=== PATIENT | male | born 1945 | race Caucasian/White ===

== ENCOUNTER 2017-02-13 20:06 | Inpatient (IN) | payer OTHER ==
[2017-02-13] MEDS ORDERED: NS 1,000 ML IV ONE ×3 (20:40→21:42)
--- NOTE | 2017-02-13 20:48 | EDPHY ---
H & P Time Seen by Provider: 02/13/17 20:28 HPI/ROS: CHIEF COMPLAINT: Diarrhea HISTORY OF PRESENT ILLNESS: The patient is a 71-year-old male with a history of coronary artery disease and bypass surgery who presents emergency department with diarrhea. The patient states his symptoms started yesterday. He has mild abdominal cramping but no real pain per report. He states he has had frequent episodes of nonbloody diarrhea. These occur numerous times per hour. Patient also has had increased urinary output. He denies dysuria or hematuria. He has no flank pain. No nausea or vomiting. No chest pain or shortness of breath. Patient is taking Kaopectate REVIEW OF SYSTEMS: My complete review of systems is negative except as mentioned in the HPI. Past Medical/Surgical History: Includes coronary artery disease Past surgical history: Includes CABG Social history: The patient denies smoking. He drinks alcohol regularly Smoking Status: Former smoker Physical Exam: 37.2, 104/81, 138, 20, 99% on room air GENERAL: No acute distress, alert. HEENT: Eyes normal to inspection, normal pharynx, no signs of dehydration. NECK: [No thyromegaly, no lymphadenopathy, supple. RESPIRATORY: Clear to auscultation bilaterally, no rales, rhonchi or wheezing. CVS: Regular rate and rhythm, no rubs, murmurs, or gallops. ABDOMEN: Soft, minimal suprapubic tenderness to palpation with no rebound or guarding, nondistended, no organomegaly. BACK: Normal to inspection, no CVA tenderness. SKIN: Normal color, no rash, warm, dry. No pallor. EXTREMITIES: No pedal edema, no calf tenderness, no Homans sign or cords, no joint swelling. NEURO/PSYCH: Alert and oriented x3, normal mood and affect, normal motor sensory exam. No obvious cranial nerve deficit. Constitutional: Initial Vital Signs Temperature (C) 37.2 C 02/13/17 20:15 Heart Rate 138 H 02/13/17 20:15 Respiratory Rate 20 02/13/17 20:15 Blood Pressure 104/81 H 02/13/17 20:15 O2 Sat (%) 99 02/13/17 20:15 O2 Delivery Mode Room Air Allergies/Adverse Reactions: No Known Allergies Allergy (Unverified 02/13/17 20:19) Home Medications: Medication Instructions Recorded NK [No Known Home Meds] 02/13/17 Medical Decision Making ED Course/Re-evaluation: In the emergency department I discussed etiologies with the patient and his son. I answered all his questions. IV was placed. Patient given normal saline 1 L IV for hydration. He was given Imodium orally. Laboratory studies were obtained. Patient's CBC showed an elevated white count of 12. Patient's chemistry panel was notable for slightly elevated anion gap. Urine was positive for red blood cells. 2130: The patient is having episodes of diarrhea, nausea and vomiting. He was given Zofran 4 mg IV. The patient is slightly anxious. The patient reports that he drinks a pt of alcohol daily. I feel this may be exacerbated by alcohol withdrawal symptoms. The patient was given 1 mg of Ativan IV. He was given librium 25 mg orally. Differential Diagnosis: My differential includes but is not limited to infectious diarrhea, colitis, dehydration, mass, malignancy - Data Points Laboratory Results: Laboratory Results 02/13/17 20:35 02/13/17 20:35 02/13/17 02/13/17 02/13/17 20:44 20:35 20:35 WBC 12.44 10^3/uL H 10^3/uL (3.80-9.50) RBC 5.17 10^6/uL 10^6/uL (4.40-6.38) Hgb 17.3 g/dL g/dL (13.7-17.5) Hct 50.1 % % (40.0-51.0) MCV 96.9 fL fL (81.5-99.8) MCH 33.5 pg pg (27.9-34.1) MCHC 34.5 g/dL g/dL (32.4-36.7) RDW 13.2 % % (11.5-15.2) Plt Count 258 10^3/uL 10^3/uL (150-400) MPV 9.7 fL fL (8.7-11.7) Neut % (Auto) 73.4 % % (39.3-74.2) Lymph % (Auto) 16.2 % % (15.0-45.0) [place] % (Auto) 9.5 % % (4.5-13.0) Eos % (Auto) 0.2 % L % (0.6-7.6) Baso % (Auto) 0.4 % % (0.3-1.7) Nucleat RBC Rel Count 0.0 % % (0.0-0.2) Absolute Neuts (auto) 9.13 10^3/uL H 10^3/uL (1.70-6.50) Absolute Lymphs (auto) 2.02 10^3/uL 10^3/uL (1.00-3.00) Absolute Monos (auto) 1.18 10^3/uL H 10^3/uL (0.30-0.80) Absolute Eos (auto) 0.02 10^3/uL L 10^3/uL (0.03-0.40) Absolute Basos (auto) 0.05 10^3/uL 10^3/uL (0.02-0.10) Absolute Nucleated RBC 0.00 10^3/uL 10^3/uL (0-0.01) Immature Gran % 0.3 % % (0.0-1.1) Immature Gran # 0.04 10^3/uL 10^3/uL (0.00-0.10) Sodium 138 mEq/L mEq/L (134-144) Potassium 3.6 mEq/L mEq/L (3.5-5.2) Chloride 100 mEq/L mEq/L (97-110) Carbon Dioxide 21 mEq/l L mEq/l (22-31) Anion Gap 17 mEq/L H mEq/L (8-16) BUN 4 mg/dL L mg/dL (7-23) Creatinine 0.6 mg/dL L mg/dL (0.7-1.3) Estimated GFR > 60 Glucose 90 mg/dL mg/dL (70-100) Calcium 10.2 mg/dL mg/dL (8.5-10.4) Total Bilirubin 1.2 mg/dL mg/dL (0.1-1.4) Conjugated Bilirubin 0.3 mg/dL mg/dL (0.0-0.5) Unconjugated Bilirubin 0.9 mg/dL mg/dL (0.0-1.1) AST 39 IU/L IU/L (17-59) ALT 44 IU/L IU/L (21-72) Alkaline Phosphatase 126 IU/L IU/L (38-126) Total Protein 7.6 g/dL g/dL (6.3-8.2) Albumin 4.5 g/dL g/dL (3.5-5.0) Lipase 43 IU/L IU/L (23-300) Urine Color YELLOW Urine Appearance CLEAR Urine pH 7.0 (5.0-7.5) Ur Specific [place] 1.009 (1.002-1.030) Urine Protein NEGATIVE (NEGATIVE) Urine Ketones TRACE H (NEGATIVE) Urine Blood NEGATIVE (NEGATIVE) Urine Nitrate NEGATIVE (NEGATIVE) Urine Bilirubin NEGATIVE (NEGATIVE) Urine Urobilinogen NEGATIVE EU EU (0.2-1.0) Ur Leukocyte Esterase NEGATIVE (NEGATIVE) Urine RBC 10-15 /hpf H /hpf (0-3) Urine WBC 1-3 /hpf /hpf (0-3) Ur Epithelial Cells NONE SEEN /lpf /lpf (NONE-1+) Urine Glucose NEGATIVE (NEGATIVE) Medications Given: Discontinued Medications Chlordiazepoxide HCl (Librium) 25 mg PO EDNOW ONE Stop: 02/13/17 21:43 Last Admin: 02/13/17 21:47 Dose: 25 mg Sodium Chloride (Ns) 1,000 mls @ 0 mls/hr IV ONCE ONE PRN Reason: Wide Open Stop: 02/13/17 20:41 Last Admin: 02/13/17 20:41 Dose: 1,000 mls Sodium Chloride (Ns) 1,000 mls @ 0 mls/hr IV EDNOW ONE; Wide Open PRN Reason: Protocol Stop: 02/13/17 20:50 Last Admin: 02/13/17 21:05 Dose: Not Given Sodium Chloride (Ns) 1,000 mls @ 0 mls/hr IV ONCE ONE; Wide Open PRN Reason: Protocol Stop: 02/13/17 21:43 Last Admin: 02/13/17 21:46 Dose: 1,000 mls Loperamide HCl (Imodium) 4 mg PO EDNOW ONE Stop: 02/13/17 20:50 Last Admin: 02/13/17 20:56 Dose: 4 mg Lorazepam (Ativan Injection) 1 mg IVP EDNOW ONE Stop: 02/13/17 21:35 Last Admin: 02/13/17 21:37 Dose: 1 mg Ondansetron HCl (Zofran) 4 mg IVP EDNOW ONE Stop: 02/13/17 21:36 Last Admin: 02/13/17 21:35 Dose: 4 mg Departure - Departure Disposition: [facility] Inpatient Acute Clinical Impression: Diarrhea Qualifiers: Diarrhea type: unspecified type Qualified Code(s): R19.7 - Diarrhea, unspecified Vomiting Qualifiers: Vomiting type: unspecified Vomiting Intractability: unspecified Nausea presence : with nausea Qualified Code(s): R11.2 - Nausea with vomiting, unspecified Alcohol withdrawal Qualifiers: Complication of substance-induced condition: uncomplicated Qualified Code(s): F10.230 - Alcohol dependence with withdrawal, uncomplicated Condition: Good Instructions: Acute Diarrhea (ED) Referrals: NONE *PRIMARY CARE P,. [Primary Care Provider] - As per Instructions
[2017-02-13] MEDS ORDERED: LOPERAMIDE HCL 2 MG CAP PO ONE (20:49)
[2017-02-13 20:56] LABS: PLATELET COUNT 258 10^3/uL (150-400)
[2017-02-13] MEDS ORDERED: ONDANSETRON 4 MG/2 ML VIAL ONE (21:31)
[2017-02-13] MEDS ORDERED: LORazepam 2 MG/ML INJ IVP ONE ×3 (21:34→23:27)
[2017-02-13] MEDS ORDERED: ONDANSETRON 4 MG/2 ML VIAL IVP ONE (21:35)
[2017-02-13] MEDS ORDERED: chlordiazePOXIDE 25 MG CAP PO ONE ×2 (21:42→23:27)
[2017-02-13] MEDS ORDERED: ACETAMINOPHEN 325 MG TAB PO PRN (22:45)
[2017-02-13] MEDS ORDERED: ONDANSETRON 4 MG/2 ML VIAL IVP PRN (22:45)
[2017-02-13] MEDS ORDERED: LORazepam 2 MG/ML INJ IVP PRN ×2 (22:47)
[2017-02-13] MEDS ORDERED: D50W 25 GM/50 ML VIAL IVP PRN (22:50)
[2017-02-13] MEDS ORDERED: POTASSIUM Cl (KCl) 40 MEQ in D5W 1/2 NS 1,000 ML IV SCH (23:00)
[2017-02-13] MEDS ORDERED: THIAMINE HCL 500 MG in NS 100 ML IV ONE (23:30)
--- NOTE | 2017-02-13 23:44 | PDGENHP ---
History and Physical - Chief Complaint diarrhea - History of Present Illness Source-patient is able to provide history appears fairly reliable despite having received 3 mg of Ativan. History is consistent with that given me by the ED provider. EMR was reviewed also. HPI-this is a very pleasant 71-year-old gentleman with past medical history significant for coronary artery disease and alcoholism with a 1 pt per day of vodka intake who presents to the emergency department today with complaints of 1 -2 day history of unrelenting watery diarrhea. Patient reports that he has had a to use the toilet every hour. He denies any witnessed melena or hematochezia. Denies any nausea or vomiting. He also reports increased urinary frequency. Patient denies any fevers or chills. Patient denies any cough shortness of breath no rhinorrhea. No abdominal pain. Patient denies any hematuria but reports that it is very uncomfortable to urinate as he has lower abdominal pain. In the emergency department was noted patient was quite tremulous and tachycardic. The CIWA score initially was found to be 19 in further discussion patient regarding his alcohol consumption was positive for 1 pt of vodka per day. At time of my interview patient reports that he shares half pt with his brother. History Information - Allergies/Home Medication List Allergies/Adverse Reactions: No Known Allergies Allergy (Unverified 02/13/17 20:19) Home Medications: NK [No Known Home Meds] 02/13/17 [Last Taken Unknown] I have personally reviewed and updated: family history, medical history, social history, surgical history - Past Medical History Additional medical history: CAD status post CABG, ETOH heavy use daily 1 pt of vodka per day - Surgical History Reports: coronary bypass surgery - Family History Additional family history: Patient unable to recall - Social History Smoking Status: Former smoker Tobacco Use: Cigarettes Alcohol Use: Heavy (One pt of vodka daily) Drug Use: None Additional social history: Limited history secondary to patient's withdrawal and sedative medications. Patient reports he lives with his brother. Cor status is full Review of Systems Review of Systems: ROS: 10pt was reviewed & negative except for what was stated in HPI & below Physical Exam Physical Exam: 02/13/17 21:39 Heart Rate 120 H Respiratory 18 Rate O2 Sat (%) 93 Temperature (C) 37.2 C Blood Pressure 148/107 H Mean Arterial 120 H Pressure (MAP) O2 Delivery Room Air Mode Temp Pulse Resp BP Pulse Ox 37.2 C 124 H 18 144/114 H 93 02/13/17 21:39 02/13/17 23:06 02/13/17 23:06 02/13/17 23:06 02/13/17 23:06 Selected Entries Constitutional: no apparent distress, chronically ill appearing, unkempt, cachectic, No appears nourished, No uncomfortable Eyes: PERRL, anicteric sclera, EOMI Ears, Nose, Mouth, Throat: no oral mucosal ulcers, poor dentition, dry mucous membranes Cardiovascular: no murmur, rub, or gallop, tachycardia (Regular rhythm), No edema Peripheral Pulses: 1+: dorsalis-pedis (R), dorsalis-pedis (L) Respiratory: no respiratory distress, no rales or rhonchi, clear to auscultation , No respiratory distress Gastrointestinal: normoactive bowel sounds, tenderness (Lower abdomen related to bladder), distension (Due to palpable bladder to the umbilicus), No ascites, No guarding Genitourinary: farah in urethra (Farah catheter was placed after my initial exam of the patient noting that his bladder was enlarged up to his umbilicus patient's heart rate did drop down after Farah placement and removal of 1800 mL of urine), No no bladder fullness Skin: warm, pressure ulcer (Erythema at the coccyx.), other (Patient is slightly flushed.), No rash Musculoskeletal: generalized weakness, No joint tenderness Neurologic: AAOx3, weakness (Nonfocal/generalized), other (Nonfocal exam), No facial droop Psychiatric: interacting appropriately, not anxious, not encephalopathic, thought process linear, flat affect, No anxious, No depressed Lab Data & Imaging Review 02/13/17 20:35 02/13/17 20:35 WBC 12.44 10^3/uL (3.80-9.50) H 02/13/17 20:35 RBC 5.17 10^6/uL (4.40-6.38) 02/13/17 20:35 Hgb 17.3 g/dL (13.7-17.5) 02/13/17 20:35 Hct 50.1 % (40.0-51.0) 02/13/17 20:35 MCV 96.9 fL (81.5-99.8) 02/13/17 20:35 MCH 33.5 pg (27.9-34.1) 02/13/17 20:35 MCHC 34.5 g/dL (32.4-36.7) 02/13/17 20:35 RDW 13.2 % (11.5-15.2) 02/13/17 20:35 Plt Count 258 10^3/uL (150-400) 02/13/17 20:35 MPV 9.7 fL (8.7-11.7) 02/13/17 20:35 Neut % (Auto) 73.4 % (39.3-74.2) 02/13/17 20:35 Lymph % (Auto) 16.2 % (15.0-45.0) 02/13/17 20:35 [place] % (Auto) 9.5 % (4.5-13.0) 02/13/17 20:35 Eos % (Auto) 0.2 % (0.6-7.6) L 02/13/17 20:35 Baso % (Auto) 0.4 % (0.3-1.7) 02/13/17 20:35 Nucleat RBC Rel Count 0.0 % (0.0-0.2) 02/13/17 20:35 Absolute Neuts (auto) 9.13 10^3/uL (1.70-6.50) H 02/13/17 20:35 Absolute Lymphs (auto) 2.02 10^3/uL (1.00-3.00) 02/13/17 20:35 Absolute Monos (auto) 1.18 10^3/uL (0.30-0.80) H 02/13/17 20:35 Absolute Eos (auto) 0.02 10^3/uL (0.03-0.40) L 02/13/17 20:35 Absolute Basos (auto) 0.05 10^3/uL (0.02-0.10) 02/13/17 20:35 Absolute Nucleated RBC 0.00 10^3/uL (0-0.01) 02/13/17 20:35 Immature Gran % 0.3 % (0.0-1.1) 02/13/17 20:35 Immature Gran # 0.04 10^3/uL (0.00-0.10) 02/13/17 20:35 Sodium 138 mEq/L (134-144) 02/13/17 20:35 Potassium 3.6 mEq/L (3.5-5.2) 02/13/17 20:35 Chloride 100 mEq/L (97-110) 02/13/17 20:35 Carbon Dioxide 21 mEq/l (22-31) L 02/13/17 20:35 Anion Gap 17 mEq/L (8-16) H 02/13/17 20:35 BUN 4 mg/dL (7-23) L 02/13/17 20:35 Creatinine 0.6 mg/dL (0.7-1.3) L 02/13/17 20:35 Estimated GFR > 60 02/13/17 20:35 Glucose 90 mg/dL (70-100) 02/13/17 20:35 Calcium 10.2 mg/dL (8.5-10.4) 02/13/17 20:35 Total Bilirubin 1.2 mg/dL (0.1-1.4) 02/13/17 20:35 Conjugated Bilirubin 0.3 mg/dL (0.0-0.5) 02/13/17 20:35 Unconjugated Bilirubin 0.9 mg/dL (0.0-1.1) 02/13/17 20:35 AST 39 IU/L (17-59) 02/13/17 20:35 ALT 44 IU/L (21-72) 02/13/17 20:35 Alkaline Phosphatase 126 IU/L (38-126) 02/13/17 20:35 Total Protein 7.6 g/dL (6.3-8.2) 02/13/17 20:35 Albumin 4.5 g/dL (3.5-5.0) 02/13/17 20:35 Lipase 43 IU/L (23-300) 02/13/17 20:35 Urine Color YELLOW 02/13/17 20:44 Urine Appearance CLEAR 02/13/17 20:44 Urine pH 7.0 (5.0-7.5) 02/13/17 20:44 Ur Specific [place] 1.009 (1.002-1.030) 02/13/17 20:44 Urine Protein NEGATIVE (NEGATIVE) 02/13/17 20:44 Urine Ketones TRACE (NEGATIVE) H 02/13/17 20:44 Urine Blood NEGATIVE (NEGATIVE) 02/13/17 20:44 Urine Nitrate NEGATIVE (NEGATIVE) 02/13/17 20:44 Urine Bilirubin NEGATIVE (NEGATIVE) 02/13/17 20:44 Urine Urobilinogen NEGATIVE EU (0.2-1.0) 02/13/17 20:44 Ur Leukocyte Esterase NEGATIVE (NEGATIVE) 02/13/17 20:44 Urine RBC 10-15 /hpf (0-3) H 02/13/17 20:44 Urine WBC 1-3 /hpf (0-3) 02/13/17 20:44 Ur Epithelial Cells NONE SEEN /lpf (NONE-1+) 02/13/17 20:44 Urine Glucose NEGATIVE (NEGATIVE) 02/13/17 20:44 EKG additional interpertation: tele is sinus tach 120s-140s Assessment & Plan Assessment: Pleasant 71-year-old gentleman with history of alcoholism who presents to the emergency department diarrhea #Diarrhea (Acute) - the patient has continued to have multiple episodes of diarrhea in the emergency department as well as some incontinence. Her weight is send a sample for home stool studies including GI PCR panel and fecal leukocytes. At this time suspect likely viral illness versus alcohol withdrawal also contributing. Patient has not been on any recent antibiotic therapy does not take any home medications. #Alcohol withdrawal (Acute) - patient has been placed on CIWA protocol he responded quite well on took Ativan and Librium dosing. Patient CIWA score went from 19 upon arrival to 8 before transfer to the floor. Continue CIWA monitoring and management. # SIRS - patient with tachycardia and leukocytosis however qSOFA score 0 and no evidence of sepsis. # acute urinary retention - patient denies any previous history of urinary retention. Patient's bladder was significantly enlarged on exam I felt it was appropriate to order for Farah catheter placement at this time. His initial UA was negative. Patient remained 1800+ cc of urine in the Farah bag. As we will be continuing with aggressive IV fluid hydration and p.r.n. sedation for ETOH withdrawal, I think at this time is appropriate at this time to leave the Farah catheter in place until patient is more stable for close fluid management/ monitoring. Once patient's status improves and catheter can be removed will need to monitor postvoid residuals. Patient with possible underlying BPH but denies any previous issues before arrival to the emergency department. # elevated anion gap - secondary to starvation ketosis. Continue with IV fluid hydration and advance diet as tolerated. #Vomiting (Acute) - stabilized. P.r.n. Zomerlene # decubitus ulcer POA - wound care consultation in the a.m. #CAD - patient is no longer taking any home medications. FEN - aggressive IVF hydration. s/p 3 liters IVF in the ED. electrolyte monitoring. diet advance as tolerated. PPX - SCDs. lovenox. COR - FULL. Dispo - Admit observation on telemetry floor for closer monitoring of patient's tachycardia.
[2017-02-14] MEDS ORDERED: LIDOCAINE 2% JELLY 20 ML (UROJECT) ONE (00:01)
[2017-02-14] MEDS ORDERED: LIDOCAINE 2% JELLY 20 ML (UROJECT) UR ONE (00:10)
[2017-02-14 04:41] LABS: PLATELET COUNT 167 10^3/uL (150-400)
[2017-02-14 04:52] LABS: INR 1.07 (0.83-1.16); PROTIME(PATIENT) 14.1 SEC (12.0-15.0)
[2017-02-14] MEDS ORDERED: Herbals/Supplements -Info Only PO SCH (09:00)
[2017-02-14] MEDS ORDERED: THIAMINE HCL 500 MG in NS 100 ML IV SCH (09:00)
[2017-02-14] MEDS: ENOXAPARIN 40 MG/0.4 ML SYR SC SCH (09:01)
[2017-02-14] MEDS: ASPIRIN EC 81 MG TAB PO SCH (09:30)
[2017-02-14] MEDS: MULTIVITAMINS 1 EACH TAB PO SCH (09:30)
--- NOTE | 2017-02-14 10:22 | PDMN ---
Medical Necessity Medical necessity: est los>2mn for significant tachycardia and elevated CIWA score,dehydration, persistent diarrhea, SIRS w/leukocytosis, urinary retention of 1800+ ml, elevated anion gap, and vomiting; admit for aggressive IV hydration , [place] cath, CIWA protocol; comorbid CAD, decubitus ulcer POA, etoh abuse; per order and H&P 02/13/17
--- NOTE | 2017-02-14 11:10 | ASMTCAGE ---
CAGE Do you feel you ought to Answers: Yes cut down on your drinking or drug use? Do people annoy you by Answers: No criticizing your drinking or drug use? Do you feel guilty about Answers: No your drinking or drug use? Do you drink or use drugs Answers: Yes first thing in the morning ([employer])? Date Signed: 02/14/2017 11:10 AM Electronically Signed By:CAROLINA Forbes
--- NOTE | 2017-02-14 11:14 | ASMTCASEMG ---
Living Arrangements What is your living Answers: Alone arrangement? Who do you live with? Type Of Residence What kind of residence do Answers: House you live in? Discharge Plan Comments Coordination Status Comments Notes: Pt is a 71 y/o man admitted for diarrhea and alcohol withdrawals. CM met w/ pt for dispo planning. Pt reports drinking a 1/2 a pint of vodka daily. Pt reports that he lives w/ his son and shares the other 1/2 of the pint w/ him. Pt reports that he started drinking at the age of 15-16 y/o. Pt reports that his alcohol intake got worse after coming back from the [place]. CM completed a CAGE. Pt reports that he is not interested in quitting his alcohol use. OT has been ordered. Pt will most likely d/c without any needs when medically stable. CM available for d/c needs. Plan: Independent Date Signed: 02/14/2017 11:14 AM Electronically Signed By:CAROLINA Forbes
[2017-02-14] MEDS ORDERED: LACTULOSE 200 GM in SODIUM CL IRRIG SOLUTION 700 ML PR ONE (14:03)
[2017-02-14] MEDS ORDERED: MAGNESIUM HYDROXIDE 30 ML UDCUP PO PRN (14:04)
[2017-02-14] MEDS ORDERED: BISACODYL 10 MG SUPP PR PRN (14:04)
[2017-02-14] MEDS ORDERED: LACTULOSE 20 GM/30 ML UDCUP PO PRN (14:04)
[2017-02-14] MEDS ORDERED: POLYETHYLENE GLYCOL 3350 17 GM PKT PO PRN (14:04)
--- NOTE | 2017-02-14 16:11 | ASMTCMCOM ---
CM Note CM Note Notes: CM spoke w/ NAILA Cohen and Dr. Villalpando regarding d/c POC. Pts son has concerns about his alcohol consumption. CM spoke w/ Abraham on the phone regarding pts care. Abraham suspects that pt may be depressed. Abraham denies drinking 1/2 a pint of alcohol daily. Abraham reports that pt is forgetful about where he puts his alcohol and blames Abraham for drinking his alcohol. Abraham reports that pt has been aggressive towards while intoxicated. CM provided Abraham w/ info for [facility]. CM met w/ pt again and shared his son's concerns. Pt denies being depressed but would like a list of independent therapists he could potentially see. CM provided pt this info. CM available for changes. Plan: Independent Date Signed: 02/14/2017 04:10 PM Electronically Signed By:CAROLINA Forbes
--- NOTE | 2017-02-14 16:13 | WOCRNPDOC ---
WOCRN Advanced Assessment Note - Skin Integrity Problem, Advanced Assess Medial Buttock Incont Assoc Dermatitis Dressing Type: Open to Air Exudate Amount: None Exudate Characteristic(s): None Integumentary Issue Intervention: Barrier Cream Applied (Calazime) Andria Wound Tissue: Blanching, Raw, Denuded Andria Wound Swelling: None Wound Bed Color: Red Skin Integrity Problem Comment: Raw, denuded skin noted in gluteal cleft, extending out onto medial buttocks. Patient has been having frequent, loose stool, and per nursing report is incontinent. Applied Calazime paste, and placed order for application BID and PRN incontinence.
--- NOTE | 2017-02-14 19:32 | HOSPPROG ---
Hospitalist Progress Note Assessment/Plan: Assessment: 71-year-old M p/w acute diarrhea, SIRS, acute EtOH withdraw Plan: # Diarrhea (Acute). Suspect overflow incontinence, rectal exam revealed hard packed stool in rectal vault - getting enemas to disimpact # Alcohol withdrawal (Acute). Per son, patient with significant risk of relapse at home, patient requesting assistance with detox - CM aware, working w/ patient and son regarding options - cont CIWA w/ ativan # SIRS. Likely 2/2 EtOH withdraw, cont to monitor for infxn, monitor WBC # Acute urinary retention. Unclear etiology, 1.8L on farah insertion - start flomax - trial void tomorrow AM # Acute metabolic acidosis. Gap 17, bicarb 20-21, likely starvation ketoacidosis and failure to thrive, poor self-care, alcoholism - cont IV D5 1/2 NS, repeat labs in AM #Vomiting (Acute) - stabilized. P.r.n. Zofran # decubitus ulcer POA - wound care consultation appreciated #CAD - patient is no longer taking any home medications, restarted ASA, getting lipid panel/A1c FEN - adv diet as alo, IVF PPX - SCDs. lovenox. COR - FULL. Dispo - Inpt, high risk of mortality at home if discharged today, cont to optimize above for safe dispo plan, counseled patient regarding the importance of above. Subjective: patient feels unwell, having fecal incontinence Objective: Vital Signs Temp Pulse Resp BP Pulse Ox 36.4 C 96 12 104/74 97 02/14/17 15:25 02/14/17 15:25 02/14/17 15:25 02/14/17 15:25 02/14/17 15:25 Microbiology 02/14/17 13:15 Fecal Leukocyte Stain - Final Stool Laboratory Results 02/14/17 03:35 02/14/17 03:35 02/13/17 02/14/17 02/15/17 05:59 05:59 05:59 Intake Total 1999 1405 Output Total 3000 2000 Balance -1000 -595 PT 14.1 SEC (12.0-15.0) 02/14/17 03:35 INR 1.07 (0.83-1.16) 02/14/17 03:35 - Time Spent With Patient Time Spent with Patient: greater than 35 minutes Time Spent with Patient: Greater than 35 minutes spent on this patients care, greater than 50% of time spent counseling, educating, and coordinating care regarding the above mentioned plan. - Physical Exam Constitutional: chronically ill appearing, cachectic Cardiovascular: regular rate and rhythym, no murmur, rub, or gallop Respiratory: no respiratory distress, no rales or rhonchi, clear to auscultation Gastrointestinal: normoactive bowel sounds, soft, non-tender abdomen, no palpable masses, other (rectal exam w/ hardened stool throughout vault) Skin: other (excoriation around rectum) Neurologic: AAOx3 Psychiatric: flat affect ICD10 Worksheet Patient Problems: Problems Problem Status Onset Alcohol withdrawal Acute Diarrhea Acute Vomiting Acute
[2017-02-14] MEDS: D5W 1/2 NS 1,000 ML IV SCH (20:52)
[2017-02-14] MEDS: SENNOSIDES/DOCUSATE SODIUM TAB PO SCH (20:55)
[2017-02-15 04:12] LABS: PLATELET COUNT 153 10^3/uL (150-400)
[2017-02-15] MEDS: D5W 1/2 NS 1,000 ML IV SCH (06:59)
[2017-02-15] MEDS: ENOXAPARIN 40 MG/0.4 ML SYR SC SCH (07:47)
[2017-02-15] MEDS: MULTIVITAMINS 1 EACH TAB PO SCH (07:47)
[2017-02-15] MEDS: ASPIRIN EC 81 MG TAB PO SCH (07:48)
[2017-02-15] MEDS: SENNOSIDES/DOCUSATE SODIUM TAB PO SCH (07:48)
[2017-02-15] MEDS ORDERED: MAGNESIUM SULF 2 GM/WATER 50 ML IV ONE (08:43)
[2017-02-15] MEDS ORDERED: POTASSIUM CL 20 MEQ TAB PO ONE (08:43)
[2017-02-15] MEDS ORDERED: THIAMINE HCL 100 MG TAB PO SCH (09:00)
[2017-02-15 11:29] VITALS: RESP 15; TEMP 98; O2SAT 94
[2017-02-15] MEDS ORDERED: TAMSULOSIN HCL 0.4 MG CAP PO SCH (11:30)
[2017-02-15] MEDS ORDERED: NS 500 ML IV ONE (12:30)
[2017-02-15 12:49] VITALS: BP 119/85; PULSE 81
--- NOTE | 2017-02-15 14:47 | PDIAF ---
- Diagnosis Diagnosis: Acute urinary retention, fecal overflow incontinence, alcoholism Code Status: Full Code - Medication Management Discharge Medications: Medications to Continue on Transfer Herbals/Supplements -Info Only 1 ea PO DAILY 02/14/17 [Last Taken Unknown] Multivitamins [Multivitamin (*)] 1 each PO DAILY 02/14/17 [Last Taken Unknown] Aspirin EC [Aspirin EC 81 mg (*)] 81 mg PO DAILY #30 tab 02/15/17 [Last Taken Unknown] Sennosides/Docusate Sodium [Senokot-S] 1 tab PO BID #60 tab 02/15/17 [Last Taken Unknown] Tamsulosin HCl [Flomax 0.4 MG (*)] 0.4 mg PO HS #30 cap 02/15/17 [Last Taken Unknown] Shelter Antibiotics: NA Discharge Medications: Refer to the Discharge Home Medication list for PRN reason. PICC Care - Routine: N/A - Orders Services needed: Home Care, Registered Nurse, Master Chemical Handler Home Care Face to Face: I certify that this patient was under my care and that I had the required [id number] encounter meeting the encounter requirements on the discharge day. My findings support the fact that the patient is homebound as defined in Home Care Face to Face Continued: CMS Chapter 7 Medicare Benefits Manual 30.1.1 , The condition of the patient is such that there exists a normal inability to leave home and consequently, leaving home would require a considerable and taxing effort. Isolation Type: None Diet Recommendation: cardiac -low fat low salt Diet Texture: Regular Texture Diet Farah: Yes (keep in until outpatient urology follow-up) - Follow Up Care Current Providers and Referrals: Tristan Hathaway DO [Doctor of Osteopathy] - follow up in 2 weeks (please establish care with a PCP (Dr. Hathaway)) NONE *PRIMARY CARE P,. [Primary Care Provider] - As per Instructions Zhang Wharton MD [Medical Doctor] - follow up in 1 week (please schedule for farah removal) Richar Hilliard MD [Medical Doctor] - follow up in 2 weeks (please establish care at [facility])
--- NOTE | 2017-02-15 16:23 | ASDISCHSUM ---
Discharge Information Plan Status:Home with Home Health Medically Cleared to Leave:02/14/2017 Discharge Date:02/15/2017 04:17 PM CM D/C Disposition:Home Health Service ADT D/C Disposition:Home Health Service Projected Discharge Date:02/15/2017 11:00 AM Transportation at D/C:Family Discharge Delay Reason: Follow-Up Date:02/15/2017 11:00 AM Discharge Slot:2 - 12:01 pm - 18:00 pm Final Diagnosis:Diarrhea, acute urinary retention, alcohol withdrawal, SIRS, acute metabolic acidosi s, vomiting Placement Information Referral Type:*Home Health Care Services Referral ID:[id number] Provider Name:[facility] Address 1:[address] [place] [address], [address] Address 2: [facility]:[place] Selection Factors:Patient/Family Choice State:[place] Referral Type:*Home Health Care Services Referral ID:[id number] Provider Name:[facility] Address 1:[address] [place] [address], [address] Address 2: [facility]:[place] Selection Factors:Patient/Family Choice State:[place] Patient Contact Information Contact Name:JULIANE Relationship:Son Address: Work Phone: City: [facility] Phone: [facility] Code: Email: Financial Information Financial Class: Primary Plan Desc:MEDICARE INPATIENT Primary Plan Number:[id number] Secondary Plan Desc: Secondary Plan Number: Assessment Information [facility] Initial CM Assessment Living Arrangements What is your living Answers: Alone arrangement? Who do you live with? Type Of Residence What kind of residence do Answers: House you live in? Discharge Plan Comments Coordination Status Comments Notes: Pt is a 71 y/o man admitted for diarrhea and alcohol withdrawals. CM met w/ pt for dispo planning. Pt reports drinking a 1/2 a pint of vodka daily. Pt reports that he lives w/ his son and shares the other 1/2 of the pint w/ him. Pt reports that he started drinking at the age of 15-16 y/o. Pt reports that his alcohol intake got worse after coming back from the [place]. CM completed a CAGE. Pt reports that he is not interested in quitting his alcohol use. OT has been ordered. Pt will most likely d/c without any needs when medically stable. CM available for d/c needs. Plan: Independent Date Signed: 02/14/2017 11:14 AM Electronically Signed By:CAROLINA Forbes CAGE Questionnaire CAGE Do you feel you ought to Answers: Yes cut down on your drinking or drug use? Do people annoy you by Answers: No criticizing your drinking or drug use? Do you feel guilty about Answers: No your drinking or drug use? 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 Date Signed: 02/14/2017 11:10 AM Electronically Signed By:CAROLINA Forbes [facility] Progress Note SD Note SD Note Notes: CM spoke w/ NAILA Cohen and Dr. Villalpando regarding d/c POC. Pts son has concerns about his alcohol consumption. SD spoke w/ Abraham on the phone regarding pts care. Abraham suspects that pt may be depressed. Abraham denies drinking 1/2 a pint of alcohol daily. Abraham reports that pt is forgetful about where he puts his alcohol and blames Abraham for drinking his alcohol. Abraham reports that pt has been aggressive towards while intoxicated. CM provided Abraham w/ info for Linda. CM met w/ pt again and shared his son's concerns. Pt denies being depressed but would like a list of independent therapists he could potentially see. CM provided pt this info. CM available for changes. Plan: Independent Date Signed: 02/14/2017 04:10 PM Electronically Signed By:CAROLINA Forbes Case Management Discharge Plan Note Case Management Discharge Discharge Order Complete? Answers: Yes Patient to Obtain Answers: via Family Medications Transportation Arranged Answers: Family/Friends Transport will Pick (Date 02/15/2017 03:30 PM & Time) EMTALA Complete Answers: No Notes: N/A Case Management Transport Answers: No Notes: N/A Form Complete Faxed Final Orders Answers: No Notes: Nancy WILHELM to lookup Transfer of Care Summar y and dischar Agency/Facility Transfer Answers: No Notes: Nancy WILHELM to lookup Report Printed & Faxed to Receiving Agency Family Notified Answers: Yes Notes: Son Abraham aware Discharge Comments Notes: Reviewed chart regarding discharge plan, pt's progress. Per MD notes, pt to discharge home w/ Home Care today. Met w/ pt to discuss home care; pt agreeable. Pt interested in [facility], since he is new to the area and isn't familiar with any of the home care agencies. Several questions answered. Address and phone number verified. Call placed to Nancy acosta [facility] regarding home care services. Per Nancy, able to accept pt w/ start of care for Friday02/16/17 (RN/LEYDA services). Pt given information on Meals on Wheels. Pt also provided w/ [facility] contact information and business card for further questions or concerns. Pt to follow up as directed (pt encouraged to call PCP to establish care first thing Fri02/18/17). IM signed. CM avail for any further issues or needs. Discharge Plan: Home / [facility] Care Date Signed: 02/15/2017 04:16 PM Electronically Signed By:Maude Rico RN Intervention Information Intervention Type:*Incorrect Registration Date of Service:02/14/2017 10:11 AM Patient Type:Observation Staff Member:NAILA Meier, Jessica Hours: Discipline: Severity: Comment: Intervention Type:*IM-Signed Date of Service:02/15/2017 04:00 PM Patient Type:Inpatient Staff Member:NAILA Rico Taylor Hours: Discipline: Severity: Comment:
--- NOTE | 2017-02-15 17:02 | PDDCSUM ---
Discharge Summary Discharge Summary: DISCHARGE SUMMARY FOLLOW-UP ITEMS: Establish outpatient primary care, Cardiology care, outpatient urology care with Alicea catheter removal and trial void DATE OF ADMISSION: 02/13/2017 DATE OF DISCHARGE: 02/15/2017 DISCHARGE DIAGNOSES: 1. Acute diarrhea with suspected overflow incontinence 2. Acute alcohol withdrawal 3. Systemic inflammatory response syndrome 4. Acute urinary retention with suspected BPH 5. Acute metabolic acidosis 6. Acute vomiting 7. Decubitus ulcer present on admission 8. Chronic coronary artery disease 9. Hypotension CONSULTATIONS: Wound care PROCEDURES / IMAGING: None CHIEF COMPLAINT: Acute diarrhea and vomiting, tremulousness SUBJECTIVE: Patient is feeling well at time discharge, he is not experiencing any GI symptoms PHYSICAL EXAM ON DISCHARGE: [place] blood pressure is 100-110, heart rate 90, afebrile overnight, satting well on room air, alert awake oriented x3, no tremulousness, no asterixis, lungs are clear to auscultation bilaterally, heart rate and rhythm are regular, no lower extremity edema LABS ON DISCHARGE: Potassium 3.4, creatinine 0.6, serum bicarb 24, white blood count 7300, hemoglobin 14.4, no fecal leukocytes, closely HOSPITAL COURSE BY PROBLEM: 1. Acute diarrhea. Secondary to suspected overflow incontinence with rectal exam revealing hard packed stool in the rectal vault, evacuated with enemas, no evidence of ongoing fecal impaction on rectal exam prior to discharge. Recommended ongoing use of stool softener to prevent this from recurring. 2. Acute alcohol withdrawal. Patient presented with GI symptoms and tremulousness, most likely secondary to alcohol withdrawal, as the patient's son reports significant alcohol problem at home, and the patient is able to affirm this. The patient was seen by social work, and the patient and his son were provided with extensive outpatient resources. The patient will also have home care, with homemaking rehabilitation consultant checking for safety at home and home care social sciences department chair reassessing patient's social needs. We have arranged meals on wheels for the patient given his reportedly poor nutritional status at home. 3. Systemic inflammatory response syndrome. Most likely secondary to alcohol withdrawal, evidenced by tachycardia and leukocytosis, respond IV fluids. 4. Acute urinary retention. Unclear etiology although BPH is suspected. 1.8 L of urine were drained with initial Alicea catheter placement, and a trial void was unsuccessful. The patient demonstrated 500 mL of urine in his bladder upon bladder scanning and a Alicea catheter was replaced prior to discharge. The patient will utilize Flomax at bedtime and will follow up at Dr. Wharton's urology office for an outpatient trial void. 5. Acute metabolic acidosis. Initial serum bicarbonate level was 20-21 with an anion gap of 17, most likely secondary to starvation ketoacidosis and failure to thrive. As mentioned above, the patient will be getting Meals on wheels after discharge. The patient was treated with empiric IV fluids. 6. Decubitus ulcer present on admission. Patient tube wound care. Increase mobility. 7. Chronic coronary artery disease. Patient has a previous CABG and was not taking any cardiac meds prior to arrival. We restarted him on aspirin 81 mg daily, and his LDL was less than 50, which precludes use of statin. His systolic blood pressure was consistently on the low side, and at this time I would avoid using a beta-nasrin. Recommend that he follow up with [facility], and we have provided him with information to establish care. He has not recently had any anginal symptoms. 8. Hypotension. Most likely secondary to hypovolemia, patient responded to IV fluids, and he was maintaining good oral intake prior to discharge. DISCHARGE MEDICATIONS: Please see official discharge medication reconciliation sheet in chart , aspirin 81 mg daily, Senokot S scheduled twice daily, flomax 0.4 mg at bedtime. DISCHARGE INSTRUCTIONS: Please schedule follow-up at Dr. Basil Wharton office in 1 week for trial void. TIME SPENT: Greater than 30 minutes were spent on direct patient care, as well as discharge planning and preparation.
== END 2017-02-15 16:17 | disposition home health service (06) | DRG 897 ==
LOC: OBSVTOIN 22:45 → F2W 02-14 00:36
PROVIDERS: ADMIT Family Medicine; ATTEND Family Medicine
DX: F10.239 Alcohol dependence with withdrawal, unspecified (principal); R65.10 Systemic inflammatory response syndrome (SIRS) of non-infectious origin without acute organ dysfunction; E87.2 Acidosis; E86.1 Hypovolemia; N39.490 Overflow incontinence; R33.9 Retention of urine, unspecified; N40.1 Benign prostatic hyperplasia with lower urinary tract symptoms; I25.10 Atherosclerotic heart disease of native coronary artery without angina pectoris; I95.9 Hypotension, unspecified; Z95.1 Presence of aortocoronary bypass graft; Z87.891 Personal history of nicotine dependence
CPT/HCPCS: 96374; 97165-GO; G8987-GO-CI; G8988-GO-CI; G8989-GO-CI; J1650; J2060; J2405; J3411

== ENCOUNTER 2017-02-16 09:59 | Inpatient (IN) | payer OTHER ==
--- NOTE | 2017-02-16 10:18 | EDPHY ---
HPI/HX/ROS/PE/MDM Narrative: CHIEF COMPLAINT: Confusion HPI: This patient is a 71 year old male with history of CAD and alcoholism arriving with his son for evaluation of confusion. He was discharged yesterday from [facility] after being admitted 02/13/17 for diarrhea, dehydration , and alcohol withdrawal. This morning, his son noted he seemed to be more confused than usual with behaviors such as dragging his Alicea catheter bag across the floor and being unaware of the time of day. The Alicea catheter was placed during the patient's admission, and he was directed to call for a follow up appointment tomorrow. He did not note any hematuria or otherwise abnormal urine in the catheter bag. The patient and his son deny being discharged with any antibiotics. The patient generally drinks 1-2 pints of alcohol per day, and has not had anything to drink yesterday or today. His son suspects alcohol withdrawal may be related to his symptoms. He was able to eat and drink yesterday evening. He denies fever, nausea, vomiting, diarrhea, or other associated symptoms. REVIEW OF SYSTEMS: Aside from elements discussed in the HPI, a comprehensive 10-point review of systems was reviewed and is negative. PMH: 1.CAD s/p CABG 2. Alcoholism SOCIAL HISTORY: He lives with his son, who is at bedside. Heavy daily alcohol use. Former smoker. PHYSICAL EXAM: General:Patient is alert, in no acute distress. ENT:Eyes are normal to inspection. ENT inspection normal. Neck: Normal inspection. Full range of motion. Respiratory:No respiratory distress. Breath sounds normal bilaterally. Cardiovascular: Regular rate and rhythm. Strong peripheral pulses. Normal cap refill. Abdomen:The abdomen is nontender to palpation. There are no peritoneal signs. There are normal bowel sounds. Genitourinary: Alicea catheter in place. Back: Normal to inspection. No tenderness to palpation. Skin: Normal color. No rash. Warm and dry. Extremities: Normal appearance. Full range of motion. Neuro: Oriented x3. Normal motor function. Normal sensory function. ED Course: 71 year old male with history of CAD and alcoholism presents with confusion, possible dehydration and alcohol withdrawal. Alicea catheter in place. Plan for EKG, chest x-ray, labs including CBC, BMP, troponin, liver panel, UA. Plan to administer 1L IV NS. EKG was ordered and interpreted by myself. Please see [employer]SwipeClock system for official reading. Troponin elevated at 0.058. AST elevated. UA positive for blood, no evidence of UTI. Chest x-ray reviewed. See radiologist report below for full interpretation. Plan to admit for elevated Troponin, alcohol withdrawal. [id number] Spoke with Dr. Will, hospitalist. He accepts admission. MDM: This patient presents with what sounds like worsening delirium since recent hospital discharge. He does not appear to be safe at home given reported mental status. His troponin is mildly elevated, and in setting of CAD, I think he requires admission for further observation and workup. - Data Points Imaging Results: Imaging Impressions Chest X-Ray 02/16/17 11:06 Impression: Interstitial prominence bilaterally which could represent underlying interstitial lung disease or pulmonary edema. Evidence of atherosclerotic disease in the coronary arteries and evidence of prior open heart surgery. Other chronic findings, as above. Imaging: I viewed and interpreted images myself Laboratory Results: Laboratory Results 02/16/17 10:20 02/16/17 10:20 02/16/17 02/16/17 02/16/17 10:20 10:20 10:20 WBC 6.36 10^3/uL 10^3/uL (3.80-9.50) RBC 4.42 10^6/uL 10^6/uL (4.40-6.38) Hgb 14.9 g/dL g/dL (13.7-17.5) Hct 43.6 % % (40.0-51.0) MCV 98.6 fL fL (81.5-99.8) MCH 33.7 pg pg (27.9-34.1) MCHC 34.2 g/dL g/dL (32.4-36.7) RDW 13.0 % % (11.5-15.2) Plt Count 161 10^3/uL 10^3/uL (150-400) MPV 10.2 fL fL (8.7-11.7) Neut % (Auto) 61.4 % % (39.3-74.2) Lymph % (Auto) 27.4 % % (15.0-45.0) [place] % (Auto) 7.5 % % (4.5-13.0) Eos % (Auto) 2.7 % % (0.6-7.6) Baso % (Auto) 0.8 % % (0.3-1.7) Nucleat RBC Rel Count 0.0 % % (0.0-0.2) Absolute Neuts (auto) 3.91 10^3/uL 10^3/uL (1.70-6.50) Absolute Lymphs (auto) 1.74 10^3/uL 10^3/uL (1.00-3.00) Absolute Monos (auto) 0.48 10^3/uL 10^3/uL (0.30-0.80) Absolute Eos (auto) 0.17 10^3/uL 10^3/uL (0.03-0.40) Absolute Basos (auto) 0.05 10^3/uL 10^3/uL (0.02-0.10) Absolute Nucleated RBC 0.00 10^3/uL 10^3/uL (0-0.01) Immature Gran % 0.2 % % (0.0-1.1) Immature Gran # 0.01 10^3/uL 10^3/uL (0.00-0.10) Sodium 140 mEq/L mEq/L (134-144) Potassium 3.6 mEq/L mEq/L (3.5-5.2) Chloride 107 mEq/L mEq/L (97-110) Carbon Dioxide 24 mEq/l mEq/l (22-31) Anion Gap 9 mEq/L mEq/L (8-16) BUN 3 mg/dL L mg/dL (7-23) Creatinine 0.7 mg/dL mg/dL (0.7-1.3) Estimated GFR > 60 Glucose 135 mg/dL H mg/dL (70-100) Calcium 9.0 mg/dL mg/dL (8.5-10.4) Total Bilirubin 0.7 mg/dL mg/dL (0.1-1.4) Conjugated Bilirubin 0.2 mg/dL mg/dL (0.0-0.5) Unconjugated Bilirubin 0.5 mg/dL mg/dL (0.0-1.1) AST 63 IU/L H IU/L (17-59) ALT 49 IU/L IU/L (21-72) Alkaline Phosphatase 100 IU/L IU/L (38-126) Troponin I 0.058 ng/mL H ng/mL (0.000-0.034) Total Protein 6.6 g/dL g/dL (6.3-8.2) Albumin 3.7 g/dL g/dL (3.5-5.0) Urine Color YELLOW Urine Appearance CLEAR Urine pH 7.0 (5.0-7.5) Ur Specific [place] 1.009 (1.002-1.030) Urine Protein NEGATIVE (NEGATIVE) Urine Ketones NEGATIVE (NEGATIVE) Urine Blood 2+ H (NEGATIVE) Urine Nitrate NEGATIVE (NEGATIVE) Urine Bilirubin NEGATIVE (NEGATIVE) Urine Urobilinogen NEGATIVE EU EU (0.2-1.0) Ur Leukocyte Esterase NEGATIVE (NEGATIVE) Urine RBC 25-50 /hpf H /hpf (0-3) Urine WBC 1-3 /hpf /hpf (0-3) Ur Epithelial Cells NONE SEEN /lpf /lpf (NONE-1+) Hyaline Casts 1-5 /lpf /lpf (0-1) Urine Mucus TRACE /lpf /lpf (NONE-1+) Urine Glucose NEGATIVE (NEGATIVE) Urine Opiates Screen Urine Barbiturates Ur Phencyclidine Scrn Ur Amphetamines Screen U Benzodiazepines Scrn Urine Cocaine Screen U Marijuana (THC) Screen Urine Ethyl Alcohol 02/16/17 10:10 WBC RBC Hgb Hct MCV MCH MCHC RDW Plt Count MPV Neut % (Auto) Lymph % (Auto) [place] % (Auto) Eos % (Auto) Baso % (Auto) Nucleat RBC Rel Count Absolute Neuts (auto) Absolute Lymphs (auto) Absolute Monos (auto) Absolute Eos (auto) Absolute Basos (auto) Absolute Nucleated RBC Immature Gran % Immature Gran # Sodium Potassium Chloride Carbon Dioxide Anion Gap BUN Creatinine Estimated GFR Glucose Calcium Total Bilirubin Conjugated Bilirubin Unconjugated Bilirubin AST ALT Alkaline Phosphatase Troponin I Total Protein Albumin Urine Color Urine Appearance Urine pH Ur Specific [place] Urine Protein Urine Ketones Urine Blood Urine Nitrate Urine Bilirubin Urine Urobilinogen Ur Leukocyte Esterase Urine RBC Urine WBC Ur Epithelial Cells Hyaline Casts Urine Mucus Urine Glucose Urine Opiates Screen NEGATIVE ng/mL ng/mL (NEGATIVE) Urine Barbiturates NEGATIVE ng/mL ng/mL (NEGATIVE) Ur Phencyclidine Scrn NEGATIVE ng/mL ng/mL (NEGATIVE) Ur Amphetamines Screen NEGATIVE ng/mL ng/mL (NEGATIVE) U Benzodiazepines Scrn 586 ng/mL ng/mL (NEGATIVE) Urine Cocaine Screen NEGATIVE ng/mL ng/mL (NEGATIVE) U Marijuana (THC) Screen 78 ng/mL ng/mL (NEGATIVE) Urine Ethyl Alcohol NEGATIVE (NEGATIVE) Medications Given: Dextrose/Sodium Chloride (D5w / Ns) 1,000 mls @ 100 mls/hr IV CONT ITZ Stop: 08/15/17 11:59 Last Admin: 02/16/17 14:11 Dose: 1,000 mls Discontinued Medications Sodium Chloride (Ns) 1,000 mls @ 0 mls/hr IV EDNOW ONE; Wide Open PRN Reason: Protocol Stop: 02/16/17 10:20 Last Admin: 02/16/17 10:31 Dose: 1,000 mls General Time Seen by Provider: 02/16/17 10:07 Initial Vital Signs: Initial Vital Signs Temperature (C) 36.6 C 02/16/17 10:03 Heart Rate 119 H 02/16/17 10:03 Respiratory Rate 20 02/16/17 10:03 Blood Pressure 84/59 L 02/16/17 10:03 O2 Sat (%) 93 02/16/17 10:03 O2 Delivery Mode Room Air Allergies/Adverse Reactions: No Known Allergies Allergy (Verified 02/16/17 10:01) Home Medications: Medication Instructions Recorded Herbals/Supplements -Info Only 1 ea PO DAILY 02/14/17 Multivitamins [Multivitamin (*)] 1 each PO DAILY 02/14/17 Tamsulosin HCl [Flomax 0.4 MG (*)] 0.4 mg PO HS #30 cap 02/15/17 Omeprazole Magnesium [Prilosec Otc] 20 mg PO DAILY 02/16/17 Departure - Departure Disposition: [facility] Inpatient Acute Clinical Impression: Elevated troponin Alcohol withdrawal Qualifiers: Complication of substance-induced condition: uncomplicated Qualified Code(s): F10.230 - Alcohol dependence with withdrawal, uncomplicated Condition: Fair Report Scribed for: Ellis Reich Report Scribed by: Carolyn Ashley Date of Report: 02/16/17 Time of Report: 10:58 Physician Review and Approval Statement: Portions of this note were transcribed by an ED scribe. I personally performed the history, physical exam, and medical decision making; and confirm the accuracy of the information in the transcribed note.
[2017-02-16] MEDS ORDERED: NS 1,000 ML IV ONE (10:19)
[2017-02-16 10:25] LABS: PLATELET COUNT 161 10^3/uL (150-400)
--- NOTE | 2017-02-16 10:35 | CPEKG ---
Heart Rate: 96 RR Interval: 625 P-R Interval: 152 QRSD Interval: 110 QT Interval: 368 QTC Interval: 465 P [place]: 72 QRS [place]: -54 T Wave [place]: 57 EKG Severity - ABNORMAL ECG - EKG Impression: SINUS RHYTHM EKG Impression: NONSPECIFIC IVCD WITH LAD EKG Impression: INFERIOR INFARCT, AGE INDETERMINATE EKG Impression: LATERAL INFARCT, AGE INDETERMINATE Electronically Signed By: Ry Dunham 17-Feb-2017 20:29:54
[2017-02-16] MEDS ORDERED: ACETAMINOPHEN 325 MG TAB PO PRN (11:59)
[2017-02-16] MEDS ORDERED: ONDANSETRON DISINTEGRATING 4 MG TAB PO PRN (11:59)
[2017-02-16] MEDS ORDERED: ONDANSETRON 4 MG/2 ML VIAL IVP PRN (11:59)
--- NOTE | 2017-02-16 12:26 | ASMTCASEMG ---
Living Arrangements What is your living Answers: With Other Relative(s) arrangement? Who do you live with? Type Of Residence What kind of residence do Answers: Apartment you live in? Type of Residence Facility Name Notes: 2 bedroom apartment Services Used Prior to Admission Home/Community Service Agency Name(s) Notes: Pt was to bet set up with [facility] RN/SW when discharged from [facility] 02/16/16 but doesn't have a PCP so he was never opened with them. Case Management Evaluation Functional: ADL / IADL Answers: Cognitive Deficiency Performance Deficits Due to: Psychosocial Needs: Answers: Active Substance Abuse Notes: 02/11 harrison Date Signed: 02/16/2017 12:26 PM Electronically Signed By:Yisel Hernandez RN
--- NOTE | 2017-02-16 13:07 | ASMTCMCOM ---
CM Note CM Note Notes: Patient brought into the ED by his son, Abraham ([phone]) from home. Patient had been d/c'd from [facility] yesterday 02/15 with farah catheter and plans for [facility] RN/SW to begin services today. However, per Abraham , patient seemed "more confused than usual" and was walking around the house dragging the farah bag on the floor. Spoke with Nancy from [facility] ([phone]) and she said that since patient doesn't have a PCP, [facility] is unable to accept patient until he does. Patient also says he and Abraham had not been able to lease picker the antibiotic prescription yet. Patient admitted for confusion and elevated troponin. Patient may need SNF placement if patient unable to clear cognitively, get a PCP and have HC start. Patient lives with his son Abraham in a 2 BR apartment and per pt, since Abraham is currently unemployed, he is typically able to be with patient throughout the day. Patient prefers to go home with Abraham but says he is open to the idea of a short-term SNF stay if needed. Spoke with patient, he states "I feel great, I don't know why I am here, I went to take my dog Cujo on a walk [place] and Abraham said we needed to come to the ER." When asked what year it is patient responded " [birth year] "; pt reoriented and informed it is 2018, pt pleasantly thanked me and even apologized. When asked who the current President of the [place] is, patient took a couple minutes but provided a correct response. Patient is very pleasant. Patient states he moved to [place] from [place] "about a year ago" with his dog Gita. 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 Patient has been drinking alcohol (~1/2 pint vodka/day) daily since he was 13 or 14 yrs old and reports "I've never not been where I needed to be, I never missed a day of work." Patient states his last drink was probably 3 days ago; pt says he has never experienced alcohol withdrawals. Patient does not appear to be presenting with any ETOH W/D symptoms at this time. PT/OT/RESPIRATORY CARE ASSISTANT ordered; eval for possible baseline dementia? Exact DC needs unknown, poss. SNF placement; CM to follow. Date Signed: 02/16/2017 01:07 PM Electronically Signed By:Yisel Hernandez RN
[2017-02-16] MEDS: D5W 1/2 NS 1,000 ML IV SCH ×2 (14:11→23:43)
--- NOTE | 2017-02-16 15:37 | PDGENHP ---
History and Physical - Chief Complaint Acute encephalopathy - History of Present Illness Primary care provider: None HPI: 71-year-old male presenting with acute encephalopathy characterized as confusion, disorientation, impaired mentation with onset of symptoms on the morning of this presentation, duration several hours thereafter. The symptoms were noted by the patient's son, who resides with the patient. The son reports that upon his encounter with the patient this morning, the patient did not seem to know where he was, he had inadvertently removed his Alicea catheter and was dragging it on the floor in their trailer. The patient was allegedly leaking urine from his penis as well as the Alicea catheter. The patient was unable to account for why he was doing this. The patient is unable to explain to me why he is at the hospital at this time, and he does not recall this event. He does report that he has had some associated anorexia, and he did not eat dinner on the evening prior to this presentation. He had coffee for breakfast, but no other fluids. The patient was discharged safely on the day prior to this presentation, and the patient reports that he went home, did not consume alcohol , and had a quiet evening with his son. History Information - Allergies/Home Medication List Allergies/Adverse Reactions: No Known Allergies Allergy (Verified 02/16/17 10:01) Home Medications: Herbals/Supplements -Info Only 1 ea PO DAILY 02/14/17 [Last Taken Unknown] Multivitamins [Multivitamin (*)] 1 each PO DAILY 02/14/17 [Last Taken Unknown] Omeprazole Magnesium [Prilosec Otc] 20 mg PO DAILY 02/16/17 [Last Taken Unknown] I have personally reviewed and updated: family history, medical history, social history, surgical history - Past Medical History Additional medical history: CAD status post CABG, ETOH heavy use daily 1 pt of vodka per day - Surgical History Reports: coronary bypass surgery - Family History Additional family history: Patient reports his son consumes alcohol regularly with him, patient originally [place] - Social History Smoking Status: Former smoker Alcohol Use: Heavy Additional social history: Patient is originally from [place], he served in the [employer] from 1962 until 1967 in [place], 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, he moved to [place] to live with his son approximately 1 year ago, the 2 of them reside in a trailer locally, they reportedly drink together, they dietary habits are notably poor Review of Systems Review of Systems: ROS: 10pt was reviewed & negative except for what was stated in HPI & below Constitutional: Reports: other (Anorexia) Genitourinary: Reports: other (Urinary retention) Neurological: Reports: other (Confusion, disorientation) Physical Exam Physical Exam: Temp Pulse Resp BP Pulse Ox 36.7 C 84 18 114/81 H 96 02/16/17 12:59 02/16/17 12:59 02/16/17 12:59 02/16/17 12:59 02/16/17 12:59 Constitutional: no apparent distress, appears nourished, not in pain, chronically ill appearing, No uncomfortable Eyes: PERRL, anicteric sclera, EOMI, other (Horizontal and vertical nystagmus) Ears, Nose, Mouth, Throat: moist mucous membranes, hearing normal, ears appear normal, no oral mucosal ulcers Cardiovascular: regular rate and rhythym, no murmur, rub, or gallop, No edema Respiratory: no respiratory distress, no rales or rhonchi, clear to auscultation Gastrointestinal: normoactive bowel sounds, soft, non-tender abdomen, no palpable masses Genitourinary: other (Alicea catheter in place, clear urine, no blood around penis) Musculoskeletal: other (Muscular atrophy, symmetric calves) Neurologic: AAOx3, sensation intact bilaterally, CN II-XII Intact (With horizontal and vertical nystagmus), other (No tremulousness), No weakness, No asterixes Psychiatric: interacting appropriately, not anxious, other (Concentration 7/7, poor short-term memory of recent events, good long-term memory of distant events , cooperative and follows commands), No agitated Lab Data & Imaging Review 02/16/17 10:20 02/16/17 10:20 WBC 6.36 10^3/uL (3.80-9.50) 02/16/17 10:20 RBC 4.42 10^6/uL (4.40-6.38) 02/16/17 10:20 Hgb 14.9 g/dL (13.7-17.5) 02/16/17 10:20 Hct 43.6 % (40.0-51.0) 02/16/17 10:20 MCV 98.6 fL (81.5-99.8) 02/16/17 10:20 MCH 33.7 pg (27.9-34.1) 02/16/17 10:20 MCHC 34.2 g/dL (32.4-36.7) 02/16/17 10:20 RDW 13.0 % (11.5-15.2) 02/16/17 10:20 Plt Count 161 10^3/uL (150-400) 02/16/17 10:20 MPV 10.2 fL (8.7-11.7) 02/16/17 10:20 Neut % (Auto) 61.4 % (39.3-74.2) 02/16/17 10:20 Lymph % (Auto) 27.4 % (15.0-45.0) 02/16/17 10:20 [place] % (Auto) 7.5 % (4.5-13.0) 02/16/17 10:20 Eos % (Auto) 2.7 % (0.6-7.6) 02/16/17 10:20 Baso % (Auto) 0.8 % (0.3-1.7) 02/16/17 10:20 Nucleat RBC Rel Count 0.0 % (0.0-0.2) 02/16/17 10:20 Absolute Neuts (auto) 3.91 10^3/uL (1.70-6.50) 02/16/17 10:20 Absolute Lymphs (auto) 1.74 10^3/uL (1.00-3.00) 02/16/17 10:20 Absolute Monos (auto) 0.48 10^3/uL (0.30-0.80) 02/16/17 10:20 Absolute Eos (auto) 0.17 10^3/uL (0.03-0.40) 02/16/17 10:20 Absolute Basos (auto) 0.05 10^3/uL (0.02-0.10) 02/16/17 10:20 Absolute Nucleated RBC 0.00 10^3/uL (0-0.01) 02/16/17 10:20 Immature Gran % 0.2 % (0.0-1.1) 02/16/17 10:20 Immature Gran # 0.01 10^3/uL (0.00-0.10) 02/16/17 10:20 Sodium 140 mEq/L (134-144) 02/16/17 10:20 Potassium 3.6 mEq/L (3.5-5.2) 02/16/17 10:20 Chloride 107 mEq/L (97-110) 02/16/17 10:20 Carbon Dioxide 24 mEq/l (22-31) 02/16/17 10:20 Anion Gap 9 mEq/L (8-16) 02/16/17 10:20 BUN 3 mg/dL (7-23) L 02/16/17 10:20 Creatinine 0.7 mg/dL (0.7-1.3) 02/16/17 10:20 Estimated GFR > 60 02/16/17 10:20 Glucose 135 mg/dL (70-100) H 02/16/17 10:20 Calcium 9.0 mg/dL (8.5-10.4) 02/16/17 10:20 Total Bilirubin 0.7 mg/dL (0.1-1.4) 02/16/17 10:20 Conjugated Bilirubin 0.2 mg/dL (0.0-0.5) 02/16/17 10:20 Unconjugated Bilirubin 0.5 mg/dL (0.0-1.1) 02/16/17 10:20 AST 63 IU/L (17-59) H 02/16/17 10:20 ALT 49 IU/L (21-72) 02/16/17 10:20 Alkaline Phosphatase 100 IU/L (38-126) 02/16/17 10:20 Troponin I 0.058 ng/mL (0.000-0.034) H 02/16/17 10:20 Total Protein 6.6 g/dL (6.3-8.2) 02/16/17 10:20 Albumin 3.7 g/dL (3.5-5.0) 02/16/17 10:20 Urine Color YELLOW 02/16/17 10:20 Urine Appearance CLEAR 02/16/17 10:20 Urine pH 7.0 (5.0-7.5) 02/16/17 10:20 Ur Specific [place] 1.009 (1.002-1.030) 02/16/17 10:20 Urine Protein NEGATIVE (NEGATIVE) 02/16/17 10:20 Urine Ketones NEGATIVE (NEGATIVE) 02/16/17 10:20 Urine Blood 2+ (NEGATIVE) H 02/16/17 10:20 Urine Nitrate NEGATIVE (NEGATIVE) 02/16/17 10:20 Urine Bilirubin NEGATIVE (NEGATIVE) 02/16/17 10:20 Urine Urobilinogen NEGATIVE EU (0.2-1.0) 02/16/17 10:20 Ur Leukocyte Esterase NEGATIVE (NEGATIVE) 02/16/17 10:20 Urine RBC 25-50 /hpf (0-3) H 02/16/17 10:20 Urine WBC 1-3 /hpf (0-3) 02/16/17 10:20 Ur Epithelial Cells NONE SEEN /lpf (NONE-1+) 02/16/17 10:20 Hyaline Casts 1-5 /lpf (0-1) 02/16/17 10:20 Urine Mucus TRACE /lpf (NONE-1+) 02/16/17 10:20 Urine Glucose NEGATIVE (NEGATIVE) 02/16/17 10:20 Urine Opiates Screen NEGATIVE ng/mL (NEGATIVE) 02/16/17 10:10 Urine Barbiturates NEGATIVE ng/mL (NEGATIVE) 02/16/17 10:10 Ur Phencyclidine Scrn NEGATIVE ng/mL (NEGATIVE) 02/16/17 10:10 Ur Amphetamines Screen NEGATIVE ng/mL (NEGATIVE) 02/16/17 10:10 U Benzodiazepines Scrn 586 ng/mL (NEGATIVE) 02/16/17 10:10 Urine Cocaine Screen NEGATIVE ng/mL (NEGATIVE) 02/16/17 10:10 U Marijuana (THC) Screen 78 ng/mL (NEGATIVE) 02/16/17 10:10 Urine Ethyl Alcohol NEGATIVE (NEGATIVE) 02/16/17 10:10 Visualized and Interpreted Chest x-ray results: Yes Chest X-Ray results: other (Fibrosis, no focal infiltrate) Visualized and Interpreted EKG results: Yes EKG Interpretation: Positive for: other (Normal sinus rhythm, Q-wave inferiorly) Assessment & Plan Assessment: 71-year-old male presenting with acute encephalopathy Plan: 1. Encephalopathy. Acute, new problem this provider, further workup indicated. Evidenced by global brain dysfunction characterized as confusion, disorientation, impaired cognition, all of which are an acute change from his baseline, which was interactive, cooperative, lucid at time of discharge on 1/6/ 2018. -unclear etiology at this time, consider alcohol withdrawal, Wernicke's encephalopathy, marijuana intoxication -alcohol level negative, so patient's story of not drinking alcohol prior to presentation seems to be accurate, his tox screen is positive for marijuana, unclear whether this has played any role in his presentation -given the unusual nature of this patient's presentation and cognitive symptoms , will get noncontrast head CT to evaluate for any obvious masses, as the patient is at risk for malignancy with his long history of smoking and drinking , and he does have the unusual finding of horizontal and vertical nystagmus -given the possibility of wernicke's encephalopathy from chronic heavy alcohol use, will dose him with high-dose oral thiamine -does not appear to have active infection but lumbar puncture may be indicated if we are unable to find attributable cause and his symptoms recur -patient will most likely require senior living facility placement for aggressive rehabilitation, get PT and OT assessments, cog assessment 2. Coronary artery disease. Chronic, patient with marginally elevated troponin level, of unclear significance, he does not have any previous EKGs are troponin levels for comparison -given the patient has been non adherent to cardiac medications leading up to his most recent hospitalization, will get echocardiogram to gauge patient's ejection fraction and determine what would be suitable, particularly since he has been intermittently hypotensive and his ejection fraction may be reduced -continue aspirin 81 mg -holding statin given LDL is less than 50, holding beta-nasrin given marginal hypotension -cycle cardiac enzymes, continue monitor on telemetry 3. Alcoholism. Chronic, patient was counseled extensively prior to his most recent discharge regarding alcohol cessation and outpatient resources -it does not appear that the patient has been acutely consuming alcohol, and the patient does not appear to be in active withdrawal, as the patient's last consumption was prior to his most recent hospitalization and that was greater than 4 days prior -continue to career placement services counselor the patient regarding cessation -case management to enlist the help with the patient's son 4. Urinary retention. Acute, most likely secondary to underlying BPH, Alicea catheter replaced in the emergency department without incident -continue at bedtime tamsulosin -reviewed outside records including 02/15/[address] Zhang Villalpando, it recommends outpatient trial void in approximately 1 week 5. Fecal impaction with overflow incontinence. this was an issue during the patient's most recent hospitalization, will continue on bowel regiment. Diet. Cardiac Prophylaxis. High risk, Lovenox 40 Code. Full Disposition. Anticipated discharge uncertain this time, anticipated length stay is greater than 48 hr for reasonable medical necessity including acute encephalopathy placing patient at high risk of worsening morbidity and/or mortality if the underlying etiology is not uncovered, workup in progress. Discussed patient's presentation with Dr. Michael Will, he has signed out the patient to me for evaluation.
[2017-02-16] MEDS ORDERED: BISACODYL 10 MG SUPP PR PRN (15:53)
[2017-02-16] MEDS ORDERED: LACTULOSE 20 GM/30 ML UDCUP PO PRN (15:53)
[2017-02-16] MEDS ORDERED: MAGNESIUM HYDROXIDE 30 ML UDCUP PO PRN (15:53)
--- NOTE | 2017-02-16 16:03 | PDMN ---
Medical Necessity Medical necessity: C/M review: est. > 2 MN LOS for eval and TX of acute encephalopathy, global. dysfunction of unclear etiology, placing patient at high risk of worsening morbidity and / or mortality if underlying etiology is not uncovered, requiring planned 02/16/[address], ongoing IV fluids, acute inpt PT/OT/ST, comorbid CAD S/P CABG, alcoholism, urinary retention most likely secondary to BPH, fecal impaction with overflow incontinence, former heavy tobacco smoker, recent hospitalization prior to this admission per H/P.
[2017-02-16] MEDS: TAMSULOSIN HCL 0.4 MG CAP PO SCH (19:59)
[2017-02-16] MEDS: THIAMINE HCL 100 MG TAB PO SCH (19:59)
[2017-02-16] MEDS: SENNOSIDES/DOCUSATE SODIUM TAB PO SCH (20:00)
[2017-02-17 05:37] LABS: PLATELET COUNT 118 10^3/uL (150-400)
[2017-02-17] MEDS: PANTOPRAZOLE SODIUM 40 MG TAB PO SCH (08:24)
[2017-02-17] MEDS: ENOXAPARIN 40 MG/0.4 ML SYR SC SCH (08:24)
[2017-02-17] MEDS: ASPIRIN EC 81 MG TAB PO SCH (08:24)
[2017-02-17] MEDS: MULTIVITAMINS 1 EACH TAB PO SCH (08:24)
[2017-02-17] MEDS: THIAMINE HCL 100 MG TAB PO SCH (08:24)
[2017-02-17] MEDS: SENNOSIDES/DOCUSATE SODIUM TAB PO SCH ×2 (08:24→20:16)
[2017-02-17] MEDS ORDERED: NON-FORMULARY NEW DRUG (Omeprazole Magnesium [Prilosec Otc] 20 MG) PO SCH (09:00)
[2017-02-17] MEDS ORDERED: MAGNESIUM SULF 1 GM/DEXTROSE 100 ML IV ONE (09:26)
[2017-02-17] MEDS ORDERED: POTASSIUM CL 20 MEQ TAB PO ONE (09:26)
--- NOTE | 2017-02-17 11:03 | ECHO ---
[email or web address] [address] [address] Main: [phone] Fax: Transthoracic Echocardiogram Name: EL GARDUNO MR#: [id number] Study Date: 02/17/2017 Study Time: 08:25 AM Date of : 1945 Age: 71 year(s) Height: 180.3 cm (71 in.) Weight: 62.6 kg (138 lb.) BSA: 1.8 m2 Gender: Male Examination: Echo Indication: eval for cardiomyopathy; h/o CABG, Coronary artery disease Image Quality: Adequate Contrast: Requested by: Zhang Villalpando BP: / Heart Rate: Rhythm: Indication: eval for cardiomyopathy; h/o CABG, Coronary artery disease Procedure Staff Fisheries Manager: Sanam Rivera Physician: Zhang Galvez Requesting Provider: Conclusions: Normal size left ventricle. Mild concentric LV hypertrophy. Mildly to moderately reduced systolic funtion. The ejection fraction is estimated to be 35-40 %. Inferior wall is brightened, thinned and akinetic consistent with old CT. The inferolateral wall is hypokinetic. Normal RV function. Mild-moderate mitral annular calcification. Mild mitral valve regurgitation is present. Aortic sclerosis is present. Mild aortic valve regurgitation is present. Mild tricuspid regurgitation is present. Trivial pulmonic valve regurgitation. Normal size aortic root measuring 3.3 cm. Measurements: Chambers Valvular Assessment AV/MV Valvular Assessment TV/PV Normal Normal Normal Name Value Range Name Value Range Name Value Range Ao Aylin (MM): 3.3 cm (2.2 cm-3.7 AV Vmax: 1.05 m/s (1 m/s-1.7 TR Vmax: 2.19 mm/s ( - ) cm) m/s) TR PGmax: 19 mmHg ( - ) IVSd (2D): 1.1 cm (0.6 cm-1.1 AV maxP mmHg ( - ) syst. PAP: 24 mmHg ( - ) cm) LVOT Vmax: 0.86 m/s (0.7 m/s-1.1 PV Vmax: 0.78 m/s (0.6 m/s-0.9 LVDd (2D): 3.7 cm (4.2 cm-5.9 m/s) m/s) cm) AR (PHT): 394 ms ( - ) PV PGmax: 2 mmHg ( - ) LVDs (2D): 3.2 cm (2.1 cm-4 MV E Vmax: 0.56 m/s ( - ) cm) MV A Vmax: 0.95 m/s ( - ) LVPWd (2D): 1.0 cm (0.6 cm-1 MV E/A: 0.59 ( - ) cm) Patient: EL GARDUNO Study Date: 02/17/2017 Page 1 of 2 08:25 AM LVEF (BP): 40 % (>=55 %) EF Range: 35-40 % RVDd(2D): 2.4 cm (1.9 cm-3.8 cmmm) Continued Measurements: Chambers Valvular Assessment AV/MV Valvular Assessment TV/PV Name Value Name Value Name Value LADs Lon.2 cm MV E/E' Septal: 18.00 CVP (est.): 5 mmHg LA Area: 14.1 cm2 MV E/E' Lateral: 6.50 AR Vmax: 3.91 cm/s Additional Vessels Name Value Ao Ascendin.5 cm Findings: Left Ventricle: Normal size left ventricle. Mild concentric LV hypertrophy. Mildly to moderately reduced systolic funtion. The ejection fraction is estimated to be 35-40 %. Inferior wall is brightened, thinned and akinetic consistent with old CT. The inferolateral wall is hypokinetic. Right Ventricle: Normal size right ventricle. Normal RV function. Left Atrium: The left atrium is normal in size. Right Atrium: The right atrium is normal in size. Mitral Valve: There is mild thickening of the mitral valve leaflets. Mild-moderate mitral annular calcification. Mild mitral valve regurgitation is present. No mitral stenosis is present. Aortic Valve: The aortic valve is tri-leaflet and functions normally. Aortic sclerosis is present. Mild aortic valve regurgitation is present. No aortic valve stenosis is present. Tricuspid Valve: The tricuspid valve appears normal. Mild tricuspid regurgitation is present. The pulmonary artery pressure is normal. Pulmonic Valve: The pulmonic valve is normal in appearance. Trivial pulmonic valve regurgitation. Aorta: Normal size aortic root measuring 3.3 cm. Normal size ascending aorta measuring 3.5 cm. Pericardium: No pericardial effusion. (No Signature Object) Patient: EL GARDUNO Study Date: 02/17/2017 Page 2 of 2 08:25 AM [id number]
--- NOTE | 2017-02-17 16:56 | ASMTCMCOM ---
CM Note CM Note Notes: Chart reviewed. Spoke with MD and therapies. Per PT and OT patient is physically able to preform ADLS. Per speech he has cognitive issues that prevent him from having insight and STM issues that compromise safety. Question if r/t previous alcohol usage Per speech patient may benefit from inpatient speech therapy. Referrals placed. Son is concerned as he works. Perhaps reaching out to senior services in community may be able to provide some direction when patient able to participate in an adult day care setting. CM to follow. Date Signed: 02/17/2017 04:55 PM Electronically Signed By:Mercedes Santiago RN
--- NOTE | 2017-02-17 18:56 | HOSPPROG ---
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 Evidenced by failure to retain intact, new memories (patient does not clearly recall encounters with his providers from days prior), but he does demonstrate ability to follow social cues and compensates well w/ problem solving to adjust to memory impairment -I suspect that amnesia is more likely than an early dementia, as the patient seems to have insight into impairment and attempts to compensate w/ problem solving (i.e. he can't recall that he is on a bed alarm, but he can problem- solve to figure out how to keep the bed alarm from triggering) -long-term memory intact on eval yesterday, but short-term memory significant impaired -likely 2/2 hippocampus injury from chronic alcoholism -PUTTY GLAZER/cog evals -anticipate that patient may have significant difficulty functioning independently w/o patient/family coaching/therapy, and, given his son's significant concerns, would recommend SNF for therapy, coaching, and social work asst prior to returning home -will get neuro consult tomorrow to asst in diagnosis, as well as any further recs for w/u or tx -counseled patient regarding plan above # Coronary artery disease. Chronic, patient with marginally elevated troponin level, of unclear significance, he does not have any previous EKGs or troponin levels for comparison, downtrended w/o intervention -continue aspirin 81 mg -holding statin given LDL is less than 50, holding beta-nasrin given marginal hypotension -DC tele # Suspected chronic systolic CHF w/ ischemic cardiomyopathy. Patient w/ known prior CABG, but was not on any Rx prior to admission, albeit, due to above, patient is unable to recount why he is not on medications -Echo w/ EF 35%, inferolateral/inferior wall damage, likely from prior [place], but, with the elevated troponin and no outside records, unclear if patient has at- risk vessels and unclear whether a recent acute event has contributed to reduced cerebral perfusion resulting in above -will get nuc pharm stress to eval -hold on ACEi/ARB/aldactone given low SBP -no e/o decompensation, appears euvolemic # Alcoholism. Chronic, patient was counseled extensively prior to his most recent discharge regarding alcohol cessation and outpatient resources -it does not appear that the patient has been acutely consuming alcohol, and the patient does not appear to be in active withdrawal, as the patient's last consumption was prior to his most recent hospitalization and that was greater than 4 days prior -continue to patient financial counselor the patient regarding cessation -case management to enlist the help with the patient's son # Urinary retention. Acute, most likely secondary to underlying BPH, Alice[place] catheter replaced in the emergency department without incident -continue bedtime tamsulosin -recommend outpt trial void through outpt urology # Fecal impaction with overflow incontinence. This was an issue during the patient's most recent hospitalization, will continue on bowel regiment. Diet. Cardiac Prophylaxis. High risk, Lovenox 40 Code. Full Disposition. Anticipated discharge uncertain this time, unable to safely complete ADLs, cont case mgmt work on placement Subjective: patient w/o complaints, working regularly w/ therapies today Objective: Vital Signs Temp Pulse Resp BP Pulse Ox 36.6 C 83 16 101/83 H 95 02/17/17 15:48 02/17/17 15:48 02/17/17 15:48 02/17/17 15:48 02/17/17 15:48 Laboratory Results 02/17/17 05:21 02/17/17 05:21 02/16/17 02/17/17 02/18/17 05:59 05:59 05:59 Intake Total 5320 360 Output Total 3625 750 Balance 1695 -390 - Time Spent With Patient Time Spent with Patient: greater than 35 minutes Time Spent with Patient: Greater than 35 minutes spent on this patients care, greater than 50% of time spent counseling, educating, and coordinating care regarding the above mentioned plan. - Physical Exam Constitutional: no apparent distress, not in pain, No chronically ill appearing , No uncomfortable Cardiovascular: systolic murmur (II/ at LSB), No irregularly irregular, No tachycardia, No edema Respiratory: no respiratory distress, no rales or rhonchi, clear to auscultation Gastrointestinal: normoactive bowel sounds, soft, non-tender abdomen, no palpable masses Musculoskeletal: other (prox muscle wasting) Neurologic: AAOx3, sensation intact bilaterally, No weakness Psychiatric: interacting appropriately, not anxious, thought process linear, poor memory, other (concentration 08/16) ICD10 Worksheet Patient Problems: Problems Problem Status Onset Diarrhea Acute Vomiting Acute Alcohol withdrawal Acute Elevated troponin Acute
[2017-02-17] MEDS: TAMSULOSIN HCL 0.4 MG CAP PO SCH (20:16)
[2017-02-18] MEDS: ENOXAPARIN 40 MG/0.4 ML SYR SC SCH (08:21)
[2017-02-18] MEDS: PANTOPRAZOLE SODIUM 40 MG TAB PO SCH (08:25)
[2017-02-18] MEDS: MULTIVITAMINS 1 EACH TAB PO SCH (08:26)
[2017-02-18] MEDS: THIAMINE HCL 100 MG TAB PO SCH (08:26)
[2017-02-18] MEDS: SENNOSIDES/DOCUSATE SODIUM TAB PO SCH ×2 (08:27→20:14)
[2017-02-18] MEDS ORDERED: REGADENOSON 0.4 MG/5 ML SYR IVP ONE (09:20)
[2017-02-18] MEDS: ASPIRIN EC 81 MG TAB PO SCH (11:09)
[2017-02-18] MEDS: POLYETHYLENE GLYCOL 3350 17 GM PKT PO PRN (11:12)
--- NOTE | 2017-02-18 13:05 | NEUROPROG ---
Assessment: HOSPITAL NEUROLOGY CONSULT REQUESTING: Zhang Villalpando MD REASON: memory problems HPI: 71 year old right-handed man with a history of longstanding alcoholism who presented to our facility 02/16 due to son finding the patient confused and mishandling his Alicea catheter at home. Patient was just discharged from our facility 02/15 for alcohol withdrawal, overflow incontinence, hypovolemia. He has a history of drinking a pint of vodka daily since age 14. He also has a history of cannabis intoxication. His confusion and memory dysfunction has raised the possibility of Wernicke spectrum disorder given his longstanding alcohol consumption. He is seemingly confabulating here in hospital. Patient tells me he's never been to our facility. He also states he's never been hospitalized for alcohol issues. He states he is visiting his son here, and he lives in [place]. He states the reason he is in our hospital now is "for some issues," at which point he exposed his genitals. ROS: As per the HPI, otherwise a complete 12 point ROS was performed and is negative ALLERGIES AND MEDS: As recorded in the EMR - reviewed and reconciled PFSH: As per the intake H&P by Dr. Villalpando from 02/16 EXAM: VS reviewed in EMR GEN: WDWN laying in NAD HEENT: NCAT, sclera anicteric, conjunctiva not injected, MMM, oropharynx clear, no scalp tenderness NECK: supple, nontender, no meningismus CV: RRR s1 s2 wo m/r/c/g. Carotid pulses 2+ wo bruit NEURO: MS: awake, alert, oriented to self, place, date (looking at white board), but not situation. Speech nondysarthric. No language disturbance. Follows commands. Attends to both sides. Clear episodic memory impairment on casual conversation with confabulation. Mood euthymic. Adequate fund of knowledge. CN: pupils 3mm round and reactive. Fundi with sharp discs. VFF. Primary gaze centered. Full ocular motility. Smooth pursuits with motor impersistence and apraxia. Facial sensation preserved. Face symmetric. Hearing grossly intact to finger rub. Palatoglossal movements intact. Shoulder shrug and head turn strong. MOTOR: normal bulk/tone. No adventitial movements. Full power throughout. SENSORY: intact to all modalities throughout. No extinction. COORD: no ataxia FN/HS. Eloisa preserved. REFLEX: plantars down. No clonus. DTRS 2/4. GAIT: deferred to PT safety eval DATA REVIEW: Labs reviewed in EMR PERSONALLY INTERPRETED RESULTS AND DATA: MRI brain wo reviewed - chronic right cerebellar lacunar infarct, right frontal chronic lacunar infarct, global atrophy. I don't see any overt radiographic stigmata of Wernicke's - perhaps some subtle increase in mamillary body signal, but nothing more IMPRESSION AND RECOMMENDATIONS: // SUSPECT WERNICKE ENCEPHALOPATHY Patient with episodic memory impairment, confabulation, ocular motility dysfunction, which given his history of longstanding alcoholism would support a diagnosis of Wernicke spectrum disorder. Could be further evaluated in outpatient setting by neuropsychology, but would treat as if this were the case regardless. Recommend high-dose thiamine supplementation (at least 500mg daily) and daily MVI. Clearly alcohol cessation is of the utmost importance. No further recommendations. Will sign off. Recall PRN. Objective: Vital Signs Temp Pulse Resp BP Pulse Ox 36.3 C 102 H 16 96/64 L 95 02/18/17 08:00 02/18/17 08:00 02/18/17 08:00 02/18/17 08:00 02/18/17 08:00 Laboratory Results 02/17/17 05:21 02/18/17 05:17 02/17/17 02/18/17 02/19/17 05:59 05:59 05:59 Intake Total 5320 360 200 Output Total 3625 2100 Balance 1695 -1740 200 Allergies/Adverse Reactions: No Known Allergies Allergy (Verified 02/16/17 10:01)
--- NOTE | 2017-02-18 14:29 | HOSPPROG ---
Hospitalist Progress Note Assessment/Plan: 71-year-old male presenting with acute encephalopathy in setting of chronic alcoholism. First encounter, chart reviewed. Plan: # Encephalopathy. Acute, with hx of ETOH -labs all wnl -neurology consult appreciated -getting high dosing of PO thiamine given potential of wernicke's encephalopathy as a contributing factor -MRI of the brain pending # Suspected anterograde amnesia. 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 Chronic, patient with marginally elevated troponin level, of unclear significance, he does not have any previous EKGs or troponin levels for comparison, downtrended w/o intervention -continue aspirin 81 mg -holding statin given LDL is less than 50, holding beta-nasrin given marginal hypotension # Suspected chronic systolic CHF w/ ischemic cardiomyopathy. -abnormal nuc stress -get cards consult, D/W Stella Patient w/ known prior CABG, but was not on any Rx prior to admission, albeit, due to above, patient is unable to recount why he is not on medications -hold on ACEi/ARB/aldactone given low SBP -no e/o decompensation, appears euvolemic # Alcoholism. Chronic, -continue to herb counselor the patient regarding cessation -case management to enlist the help with the patient's son # Urinary retention Acute, most likely secondary to underlying BPH, Farah catheter replaced in the emergency department without incident -continue bedtime tamsulosin -recommend outpt trial void through outpt urology # Fecal impaction with overflow incontinence. This was an issue during the patient's most recent hospitalization, will continue on bowel regiment. Diet. Cardiac Prophylaxis. High risk, Lovenox 40 Code. Full Disposition. Anticipated discharge uncertain this time, unable to safely complete ADLs, cont case mgmt work on placement Subjective: Feeling ok. Some confusion. Objective: Vital Signs Temp Pulse Resp BP Pulse Ox 36.3 C 102 H 16 96/64 L 95 02/18/17 08:00 02/18/17 08:00 02/18/17 08:00 02/18/17 08:00 02/18/17 08:00 Laboratory Results 02/17/17 05:21 02/18/17 05:17 02/17/17 02/18/17 02/19/17 05:59 05:59 05:59 Intake Total 5320 360 200 Output Total 3625 2100 Balance 1695 -1740 200 - Physical Exam Constitutional: appears nourished, not in pain, chronically ill appearing Eyes: PERRL, anicteric sclera, EOMI Ears, Nose, Mouth, Throat: moist mucous membranes, hearing normal, ears appear normal Cardiovascular: tachycardia, No JVD, No edema Respiratory: no respiratory distress, no rales or rhonchi, reduced air movement Gastrointestinal: normoactive bowel sounds, No tenderness, No ascites Genitourinary: farah in urethra Skin: warm, normal color, No erythema Musculoskeletal: normal joint ROM, no joint effusions, generalized weakness Neurologic: No AAOx3 Psychiatric: not anxious, poor insight, poor judgement, poor memory ICD10 Worksheet Patient Problems: Problems Problem Status Onset Diarrhea Acute Vomiting Acute Alcohol withdrawal Acute Elevated troponin Acute
--- NOTE | 2017-02-18 14:36 | GCON ---
[f rep st] CONSULTATION CARDIOLOGY CONSULTATION. DATE OF CONSULTATION: 02/18/2017 REFERRING PHYSICIAN: Aura Padgett NP HISTORY OF PRESENT ILLNESS: The patient is a 71-year-old male with a past medical history of CAD, st atus post CABG reportedly 5 years ago, alcohol use, who presented in this admission with encephalopat hy characterized by confusion and disorientation. He was found by his son acting in a confused joceline r, having removed his Alicea catheter. From a cardiac perspective, patient reports that he did have a heart attack approximately 5 years ago and had bypass surgery in [place], [place]. He reports th at he has been noncompliant with his cardiac medications and takes at least 1 medication only intermi ttently. He denies that he takes nitroglycerin or aspirin. He denies any symptoms of dyspnea, PND, orthopnea, peripheral edema or chest pain. PAST MEDICAL AND SURGICAL HISTORY: Include: 1. CAD status post CABG approximately 5 years ago per patient's estimate. 2. Heavy alcohol use with 1 pint of vodka per day. FAMILY HISTORY: Both parents are . SOCIAL HISTORY: The patient is a former smoker. He reports heavy alcohol use. He currently lives [facility], with his son. REVIEW OF SYSTEMS: As per HPI. A complete 10-point review of systems was obtained and is negative e xcept for what is dictated. PHYSICAL EXAM: VITAL SIGNS: BP of 96/64, heart rate of 102, respirations 16, O2 saturation 95% on r oom air, temp of 97.4. GENERAL: He is a pleasant, conversant male in no apparent distress. EYES: Wi thout scleral icterus. HEART: Regular rate and rhythm. LUNGS: Clear. ABDOMEN: Soft. Normoactiv e bowel sounds. SKIN: Warm and dry without edema. LAB: CBC with WBC 4.14, hemoglobin 13.8, hematocrit 40.1, platelet count of 118. BMP was sodium 142, potassium 3.9, chloride 107, CO2 24, BUN 3, creatinine 0.8, glucose of 83. Troponin 0.058 then 0.01 2 and 0.012. A 12-lead ECG personally interpreted, sinus rhythm with left atrial abnormality, inferi or Q's, slow R-wave progression. Echocardiogram from this admission shows mild concentric LVH with a n estimated ejection fraction of 35%-40%, inferior wall is brightened, thin and akinetic consistent w ith old ID, inferolateral wall is hypokinetic. Mild to moderate MAC, mild MR, mild aortic valve regu rgitation, mild TR is present. Nuclear stress test from today demonstrates a large inferior and late ral wall infarct with diffuse hypokinesis especially involving the inferior and lateral agudelo, EF of 18%. IMPRESSION: The patient is a 71-year-old male, admitted with encephalopathy. 1. Coronary artery disease. Patient had a nuclear stress test that shows large infarct with no areas of ischemia. We reviewed the importance of medical management. Patient is agreeable to start medic al therapy. 2. Systolic congestive heart failure. Likely ischemic versus alcohol mediated. The patient was cou nseled on alcohol cessation. We will trial medical therapy, and the patient will be followed closely in clinic. If ejection fraction does not improve, he would possibly be a candidate for implantable c ardioverter defibrillator. /[id number]/MODL
--- NOTE | 2017-02-18 16:56 | ASMTCMCOM ---
CM Note CM Note Notes: Pt accepted at [facility], pt states he prefers to stay in [place] but wants to go home. Spoke w pt son Abraham [phone] who wants to know insurance coverage for SNF, pt face sheet shows Medicare INpatient so this CM will confirm w accepting SNFs pt has proper SNF benefit for payment. CM to la. Date Signed: 02/18/2017 04:56 PM Electronically Signed By:KATRINA Gonzalez
[2017-02-18] MEDS: CARVEDILOL 3.125 MG TAB PO SCH (17:46)
[2017-02-18] MEDS: TAMSULOSIN HCL 0.4 MG CAP PO SCH ×2 (20:12→20:14)
--- NOTE | 2017-02-19 07:53 | PDCARST ---
CAR Stress Test Results Type of Stress Test: Lexiscan stress test Indication: CAD Description of Procedure: After informed consent was obtained, pt was established to ECG, blood pressure, HR and oximetry monitoring. STRESS EKG AND HEMODYNAMIC DATA. Resting heart rate: 95 BPM. Resting ECG: SR. Resting blood pressure: 110/70 mmHg. O2 saturation at rest: 98%. Peak heart rate: 119 BPM. Peak blood pressure: 108/70 mmHg. Arrhythmias: none. Symptoms: The patient experienced no typical symptoms of angina during stress or recovery. . Stress/Infusion ECG: No change in rhythm with no significant ST/T wave changes. Stress/infusion O2 saturation: 99% Impression: uneventful Lexiscan infusion. Conclusion: Await nuclear images.
[2017-02-19 08:41] VITALS: BP 91/62; PULSE 83; RESP 14; TEMP 97.8; O2SAT 94
--- NOTE | 2017-02-19 09:05 | CPEKG ---
Heart Rate: 89 RR Interval: 674 P-R Interval: 148 QRSD Interval: 110 QT Interval: 384 QTC Interval: 468 P Felda: 72 QRS Felda: -48 T Wave Felda: 136 EKG Severity - ABNORMAL ECG - EKG Impression: SINUS RHYTHM EKG Impression: VENTRICULAR PREMATURE COMPLEX EKG Impression: NONSPECIFIC IVCD WITH LAD EKG Impression: LEFT VENTRICULAR HYPERTROPHY EKG Impression: INFERIOR INFARCT, AGE INDETERMINATE EKG Impression: LATERAL INFARCT, AGE INDETERMINATE Electronically Signed By: Faraz Cloud 19-Feb-2017 16:22:20
[2017-02-19] MEDS: THIAMINE HCL 100 MG TAB PO SCH (09:25)
[2017-02-19] MEDS: ENOXAPARIN 40 MG/0.4 ML SYR SC SCH (09:25)
[2017-02-19] MEDS: ASPIRIN EC 81 MG TAB PO SCH (09:25)
[2017-02-19] MEDS: POLYETHYLENE GLYCOL 3350 17 GM PKT PO PRN (09:26)
[2017-02-19] MEDS: CARVEDILOL 3.125 MG TAB PO SCH (09:26)
[2017-02-19] MEDS: MULTIVITAMINS 1 EACH TAB PO SCH (09:26)
[2017-02-19] MEDS: SENNOSIDES/DOCUSATE SODIUM TAB PO SCH (09:26)
[2017-02-19] MEDS: PANTOPRAZOLE SODIUM 40 MG TAB PO SCH (09:29)
--- NOTE | 2017-02-19 12:18 | PDIAF ---
- Diagnosis Diagnosis: AMS Code Status: Full Code - Medication Management Discharge Medications: Medications to Continue on Transfer Herbals/Supplements -Info Only 1 ea PO DAILY 02/14/17 [Last Taken Unknown] Multivitamins [Multivitamin (*)] 1 each PO DAILY 02/14/17 [Last Taken Unknown] Tamsulosin HCl [Flomax 0.4 MG (*)] 0.4 mg PO HS #30 cap 02/15/17 [Last Taken Unknown] Omeprazole Magnesium [Prilosec Otc] 20 mg PO DAILY 02/16/17 [Last Taken Unknown] Acetaminophen [Tylenol 325mg (*)] 650 mg PO Q4HRS PRN tab 02/19/17 [Last Taken Unknown] Aspirin EC [Aspirin EC 81 mg (*)] 81 mg PO DAILY tab 02/19/17 [Last Taken Unknown] Carvedilol [Coreg (*)] 3.125 mg PO BIDMEAL tab 02/19/17 [Last Taken Unknown] Polyethylene Glycol 3350 [Miralax 17 gm (*)] 17 gm PO DAILY PRN pkt 02/19/17 [ Last Taken Unknown] Sennosides/Docusate Sodium [Senokot-S] 1 - 2 tab PO BID tab 02/19/17 [Last Taken Unknown] Thiamine HCl [Vitamin B-1] 200 mg PO DAILY tab 02/19/17 [Last Taken Unknown] Discharge Medications: Refer to the Discharge Home Medication list for PRN reason. PICC Care - Routine: N/A - Orders Services needed: Registered Nurse, Physical Therapy, Occupational Therapy Isolation Type: None Diet Recommendation: no restrictions on diet - Follow Up Care Current Providers and Referrals: Faraz Cloud MD [Medical Doctor] - 03/03/17 1:00 pm NONE *PRIMARY CARE P,. [Primary Care Provider] - As per Instructions
--- NOTE | 2017-02-19 14:16 | GDS ---
[f rep st] DISCHARGE SUMMARY DISCHARGE DIAGNOSES: 1. Altered mental status. 2. Acute encephalopathy. 3. Coronary artery disease. 4. Chronic systolic congestive heart failure with ischemic cardiomyopathy. 5. Alcoholism. 6. Urinary retention. CONSULTATIONS: 1. Cardiology. 2. Neurology. STUDIES AND PROCEDURES: 1. Echocardiogram. 2. CT of the head. 3. MRI of the brain. 4. Nuclear perfusion test. 5. Stress test. PHYSICAL EXAM: GENERAL: The patient is alert. VITAL SIGNS: Afebrile at 36.6 , pulse 83, respiratory rate 14, blood pressure is 91/62. He is saturating 94% on room air. I have seen and evaluated the patient on the day of discharge. HOSPITAL COURSE: The patient is a 71-year-old male brought to the emergency room with complaints of confusion. He was evaluated and diagnosed with: 1. Acute encephalopathy. This is multifactorial. He did receive a consultation from Neurology during this hospitalization. His condition has improved. MRI of the brain was performed. He is likely back to his baseline mentation. 2. Alcohol abuse. The patient likely suffers from some neurological decline secondary to his significant alcohol abuse. He has been educated with regard to this. 3. Ischemic cardiomyopathy. During this hospitalization, the patient received a consultation from Cardiology. A stress test was performed during this hospital course. He will be managed medically in the outpatient setting. 4. History of coronary artery disease. Again, Cardiology will help assist in managing this. 5. Urinary retention. The patient has a Alicea catheter in place. This will remain in place at the time of disposition. He will follow up with Urology in the outpatient setting. DISPOSITION: The patient will be discharged to a intermediate facility for further rehabilitation and management. He is unable to care for himself at this point in the outpatient setting. Physical therapy and occupational therapy will be continued. DISCHARGE MEDICATIONS: Please refer to EMR form. The patient has been initiated on Coreg, as well as aspirin during this hospitalization, and thiamine. FOLLOWUP: Followup will be with Dr. Cloud on 03/03/2017 at 1 p.m. He will also follow up with his primary care physician. There are no pending studies. I spent greater than 35 minutes in the care, coordination, and management of the patient's disposition. /[id number]/MODL Dictating for Dr Zeb ESQUIVEL
--- NOTE | 2017-02-19 14:44 | ASDISCHSUM ---
Discharge Information Plan Status:SNF Medically Cleared to Leave: Discharge Date:02/19/2017 01:40 PM CM D/C Disposition:Correction Facility ADT D/C Disposition:Correction Facility Projected Discharge Date:02/18/2017 11:00 AM Transportation at D/C:Wheelchair Van Discharge Delay Reason: Follow-Up Date:02/18/2017 11:00 AM Discharge Slot: Final Diagnosis: Placement Information Referral Type:*Assisted/SNF Referral ID:[id number] Provider Name:[facility] Address 1:[address] Address 2: City:[place] Selection Factors: State:[place] Patient Contact Information Contact Name:ASHLEYAKBAR Relationship:Son Address: Work Phone: City: [facility] Phone: State/Zip Code: Email: Financial Information Financial Class: Primary Plan Desc:MEDICARE INPATIENT Primary Plan Number:[id number] Secondary Plan Desc: Secondary Plan Number: Assessment Information [facility] Initial CM Assessment Living Arrangements What is your living Answers: With Other Relative(s) arrangement? Who do you live with? Type Of Residence What kind of residence do Answers: Apartment you live in? Type of Residence Facility Name Notes: 2 bedroom apartment Services Used Prior to Admission Home/Community Service Agency Name(s) Notes: Pt was to bet set up with HC RN/LEYDA when discharged from [facility] 02/16/16 but doesn't have a PCP so he was never opened with them. Case Management Evaluation Functional: ADL / IADL Answers: Cognitive Deficiency Performance Deficits Due to: Psychosocial Needs: Answers: Active Substance Abuse Notes: 02/11 harrison Date Signed: 02/16/2017 12:26 PM Electronically Signed By:Yisel Hernandez RN [facility] CM Progress Note CM Note CM Note Notes: Patient brought into the ED by his son, Abraham ([phone]) from home. Patient had been d/c'd from [facility] yesterday 02/15 with farah catheter and plans for [facility] RN/SW to begin services today. However, per Abraham , patient seemed "more confused than usual" and was walking around the house dragging the farah bag on the floor. Spoke with Nancy from [facility] ([phone]) and she said that since patient doesn't have a PCP, [facility] is unable to accept patient until he does. Patient also says he and Abraham had not been able to hot die picker the antibiotic prescription yet. Patient admitted for confusion and elevated troponin. Patient may need SNF placement if patient unable to clear cognitively, get a PCP and have HC start. Patient lives with his son Abraham in a 2 BR apartment and per pt, since Abraham is currently unemployed, he is typically able to be with patient throughout the day. Patient prefers to go home with Abraham but says he is open to the idea of a short-term SNF stay if needed. Spoke with patient, he states "I feel great, I don't know why I am here, I went to take my dog Gita on a walk around the [place] and Abraham said we needed to come to the ER." When asked what year it is patient responded " [birth year] "; pt reoriented and informed it is 2018, pt pleasantly thanked me and even apologized. When asked who the current President of the [place] is, patient took a couple minutes but provided a correct response. Patient is very pleasant. Patient states he moved to [place] from [place] "about a year ago" with his dog Gita. 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 Patient has been drinking alcohol (~1/2 pint vodka/day) daily since he was 13 or 14 yrs old and reports "I've never not been where I needed to be, I never missed a day of work." Patient states his last drink was probably 3 days ago; pt says he has never experienced alcohol withdrawals. Patient does not appear to be presenting with any ETOH W/D symptoms at this time. PT/OT/ORDER EXPEDITER ordered; eval for possible baseline dementia? Exact DC needs unknown, poss. SNF placement; CM to follow. Date Signed: 02/16/2017 01:07 PM Electronically Signed By:Yisel Hernandez RN [facility] CM Progress Note CM Note CM Note Notes: Chart reviewed. Spoke with MD and therapies. Per PT and OT patient is physically able to preform ADLS. Per speech he has cognitive issues that prevent him from having insight and STM issues that compromise safety. Question if r/t previous alcohol usage Per speech patient may benefit from inpatient speech therapy. Referrals placed. Son is concerned as he works. Perhaps reaching out to senior services in community may be able to provide some direction when patient able to participate in an adult day care setting. CM to follow. Date Signed: 02/17/2017 04:55 PM Electronically Signed By:Mercedes Santiago RN [facility] CM Progress Note CM Note CM Note Notes: Pt accepted at [facility], pt states he prefers to stay in [place] but wants to go home. Spoke w pt son Abraham [phone] who wants to know insurance coverage for SNF, pt face sheet shows Medicare INpatient so this CM will confirm w accepting SNFs pt has proper SNF benefit for payment. CM to la. Date Signed: 02/18/2017 04:56 PM Electronically Signed By:KATRINA Gonzalez [facility] CM Progress Note CM Note CM Note Notes: Today [facility] and [facility] confirmed pt has Medicare SNF benefit, updated pt son. Pt chose [facility], pt medically stable for d/c to [facility]. Madeline set up wc van for 01:30p. Orders sent in [employer]. Pt son Gerardo updated and agreeable to d/c plan of care. Date Signed: 02/19/2017 02:42 PM Electronically Signed By:KATRINA Gonzalez Intervention Information
== END 2017-02-19 13:40 | DRG 57 ==
LOC: OBSVTOIN 11:59 → F3N 12:44
PROVIDERS: ADMIT Internal Medicine Pulmonary Disease; ATTEND Internal Medicine
DX: G31.2 Degeneration of nervous system due to alcohol (principal); I50.20 Unspecified systolic (congestive) heart failure; F10.20 Alcohol dependence, uncomplicated; I25.10 Atherosclerotic heart disease of native coronary artery without angina pectoris; I25.5 Ischemic cardiomyopathy; N40.1 Benign prostatic hyperplasia with lower urinary tract symptoms; R33.9 Retention of urine, unspecified; K56.41 Fecal impaction; Z95.1 Presence of aortocoronary bypass graft; Z87.891 Personal history of nicotine dependence
CPT/HCPCS: 80307; 92507-GN; 92523-GN; 97112-GP; 97162-GP; 97165-GO; 97535-GO; A9500; G0480; G8978-GP-CI; G8979-GP-CI; G8987-GO-CI; G8988-GO-CI; G8989-GO-CI; G9165-GN-CJ; G9166-GN-CI; J1650; J2785; J3475

== ENCOUNTER 2017-05-16 16:01 | Inpatient (IN) | payer OTHER ==
--- NOTE | 2017-05-16 16:17 | EDPHY ---
H & P Time Seen by Provider: 05/16/17 16:08 HPI/ROS: CHIEF COMPLAINT: Dizzy, prostatitis HISTORY OF PRESENT ILLNESS: Patient is a 71-year-old male with a history of coronary artery disease who was diagnosed last week with prostatitis. He saw Dr. Cordero on Friday and was started on antibiotics (Bactrim). He was told to return if his symptoms did not improve. He continues to have intermittent lower abdominal discomfort. He also reports dark colored urine and dysuria. He went saw Dr. Cordero this morning. There he complained of dizziness and was noted to have a low blood pressure. He was told to come to the emergency department. Patient went home T [place] prior to coming to the emergency department. He denies any chest pain. He has no shortness of breath. He does report a nonproductive cough. He stopped smoking cigarettes "when the mcdonald went up to 25 cents." REVIEW OF SYSTEMS: My complete review of systems is negative except as mentioned in the HPI. Past Medical/Surgical History: Includes coronary artery disease, prostatitis Past surgical history: Includes CABG, stent placement Social history: The patient does not smoke. He denies drugs or alcohol. Smoking Status: Former smoker Physical Exam: 36.5, 110/74, 112, 18, 97% on room air GENERAL: Well-appearing, in no acute distress, alert. Thin. HEENT: Eyes normal to inspection, normal pharynx, no signs of dehydration. NECK: No thyromegaly, no lymphadenopathy, supple. RESPIRATORY: Mild rales at the left base. No rhonchi or wheezing. CVS: Tachycardia with regular rhythm, no rubs, murmurs, or gallops. ABDOMEN: Soft, nontender, nondistended, no organomegaly. BACK: Normal to inspection, no CVA tenderness. SKIN: Normal color, no rash, warm, dry. No pallor. EXTREMITIES: No pedal edema, no calf tenderness, no Homans sign or cords, no joint swelling. NEURO/PSYCH: Higher functions: Alert and Oriented x3. Normal speech and cognition. Normal mood and affect. Cranial nerves: Normal as tested. Cerebellar: Normal as tested. Good finger to nose, good [id number], normal gait. Peripheral exam: Normal motor exam. Normal sensation. Constitutional: Initial Vital Signs Temperature (C) 36.5 C 05/16/17 16:03 Heart Rate 112 H 05/16/17 16:03 Respiratory Rate 18 05/16/17 16:03 Blood Pressure 110/74 05/16/17 16:03 O2 Sat (%) 97 05/16/17 16:03 O2 Delivery Mode Room Air Allergies/Adverse Reactions: No Known Allergies Allergy (Verified 02/16/17 10:01) Home Medications: Medication Instructions Recorded Herbals/Supplements -Info Only 1 ea PO DAILY 02/14/17 Multivitamins [Multivitamin (*)] 1 each PO DAILY 02/14/17 Tamsulosin HCl [Flomax 0.4 MG (*)] 0.4 mg PO HS #30 cap 02/15/17 Omeprazole Magnesium [Prilosec Otc] 20 mg PO DAILY 02/16/17 Acetaminophen [Tylenol 325mg (*)] 650 mg PO Q4HRS PRN tab 02/19/17 Aspirin EC [Aspirin EC 81 mg (*)] 81 mg PO DAILY tab 02/19/17 Polyethylene Glycol 3350 [Miralax 17 gm PO DAILY PRN pkt 02/19/17 17 gm (*)] Sennosides/Docusate Sodium 1 - 2 tab PO BID tab 02/19/17 [Senokot-S] Thiamine HCl [Vitamin B-1] 200 mg PO DAILY tab 02/19/17 Bactrim DS 05/16/17 Medical Decision Making - Diagnostics Imaging Results: Imaging Impressions Chest X-Ray 05/16/17 16:22 Impression: 1. Chest negative for acute cardiopulmonary abnormality. 2. See above report for additional findings. ED Course/Re-evaluation: In the emergency department I discussed possible etiologies with the patient and son. I answered all his questions. IV was placed. Laboratory studies and cultures were obtained. Chest x-ray, EKG were ordered. Patient was given normal saline 500 mL IV for hydration. CBC was normal. Patient has a normal white count. Chemistries unremarkable. Patient has elevated BNP of 1270. Patient had elevated lactate of 2.2. Awaiting urine. Chest x-ray: No acute disease noted. On recheck the patient is lying comfortably in the bed. Patient's urine was positive for leuk esterase. Culture is pending. I discussed the findings with the patient. I answered all his questions. Due the patient's reported hypotension at Dr. Cordero his office and his dizziness he will be observed in the hospital. Patient was given Levaquin 500 mg IV for prostatitis treatment. I discussed case with Dr. Forman. She will admit the patient. The Differential Diagnosis: My differential includes but is not limited to prostatitis, bacteremia, sepsis, pyelonephritis, urinary tract infection, dehydration, renal insufficiency, electrolyte abnormality, sugar abnormality, CVA, dissection, aneurysm, ACS, acute UT, pneumonia, bronchitis - Data Points Laboratory Results: Laboratory Results 05/16/17 16:22 05/16/17 16:22 05/16/17 05/16/17 05/16/17 17:49 16:22 16:22 WBC RBC Hgb Hct MCV MCH MCHC RDW Plt Count MPV Neut % (Auto) Lymph % (Auto) Tift % (Auto) Eos % (Auto) Baso % (Auto) Nucleat RBC Rel Count Absolute Neuts (auto) Absolute Lymphs (auto) Absolute Monos (auto) Absolute Eos (auto) Absolute Basos (auto) Absolute Nucleated RBC Immature Gran % Immature Gran # VBG Lactic Acid 2.2 mmol/L H mmol/L (0.7-2.1) Sodium 137 mEq/L mEq/L (135-145) Potassium 3.6 mEq/L mEq/L (3.5-5.2) Chloride 99 mEq/L mEq/L (97-110) Carbon Dioxide 24 mEq/l mEq/l (22-31) Anion Gap 14 mEq/L mEq/L (8-16) BUN 13 mg/dL mg/dL (7-23) Creatinine 1.0 mg/dL mg/dL (0.7-1.3) Estimated GFR > 60 Glucose 86 mg/dL mg/dL (70-100) Calcium 9.4 mg/dL mg/dL (8.5-10.4) Troponin I < 0.012 ng/mL ng/mL (0.000-0.034) NT-Pro-B Natriuret Pep 1290 pg/mL H pg/mL (0-125) Urine Color YELLOW Urine Appearance CLEAR Urine pH 6.0 (5.0-7.5) Ur Specific [place] 1.014 (1.002-1.030) Urine Protein NEGATIVE (NEGATIVE) Urine Ketones NEGATIVE (NEGATIVE) Urine Blood NEGATIVE (NEGATIVE) Urine Nitrate NEGATIVE (NEGATIVE) Urine Bilirubin NEGATIVE (NEGATIVE) Urine Urobilinogen NEGATIVE EU EU (0.2-1.0) Ur Leukocyte Esterase TRACE H (NEGATIVE) Urine RBC 1-3 /hpf /hpf (0-3) Urine WBC 5-10 /hpf H /hpf (0-3) Ur Epithelial Cells TRACE /lpf /lpf (NONE-1+) Urine Glucose NEGATIVE (NEGATIVE) 05/16/17 16:22 WBC 9.31 10^3/uL 10^3/uL (3.80-9.50) RBC 4.99 10^6/uL 10^6/uL (4.40-6.38) Hgb 16.4 g/dL g/dL (13.7-17.5) Hct 46.7 % % (40.0-51.0) MCV 93.6 fL fL (81.5-99.8) MCH 32.9 pg pg (27.9-34.1) MCHC 35.1 g/dL g/dL (32.4-36.7) RDW 13.9 % % (11.5-15.2) Plt Count 182 10^3/uL 10^3/uL (150-400) MPV 9.6 fL fL (8.7-11.7) Neut % (Auto) 61.7 % % (39.3-74.2) Lymph % (Auto) 27.0 % % (15.0-45.0) Tift % (Auto) 9.5 % % (4.5-13.0) Eos % (Auto) 1.0 % % (0.6-7.6) Baso % (Auto) 0.5 % % (0.3-1.7) Nucleat RBC Rel Count 0.0 % % (0.0-0.2) Absolute Neuts (auto) 5.75 10^3/uL 10^3/uL (1.70-6.50) Absolute Lymphs (auto) 2.51 10^3/uL 10^3/uL (1.00-3.00) Absolute Monos (auto) 0.88 10^3/uL H 10^3/uL (0.30-0.80) Absolute Eos (auto) 0.09 10^3/uL 10^3/uL (0.03-0.40) Absolute Basos (auto) 0.05 10^3/uL 10^3/uL (0.02-0.10) Absolute Nucleated RBC 0.00 10^3/uL 10^3/uL (0-0.01) Immature Gran % 0.3 % % (0.0-1.1) Immature Gran # 0.03 10^3/uL 10^3/uL (0.00-0.10) VBG Lactic Acid Sodium Potassium Chloride Carbon Dioxide Anion Gap BUN Creatinine Estimated GFR Glucose Calcium Troponin I NT-Pro-B Natriuret Pep Urine Color Urine Appearance Urine pH Ur Specific [place] Urine Protein Urine Ketones Urine Blood Urine Nitrate Urine Bilirubin Urine Urobilinogen Ur Leukocyte Esterase Urine RBC Urine WBC Ur Epithelial Cells Urine Glucose Medications Given: Discontinued Medications Sodium Chloride (Ns) 500 mls @ 0 mls/hr IV ONCE ONE; Wide Open PRN Reason: Protocol Stop: 05/16/17 16:22 Last Admin: 05/16/17 16:33 Dose: 500 mls Departure - Departure Disposition: [facility] In[facility] Acute Clinical Impression: Dizziness Prostatitis Qualifiers: Prostatitis type: acute Qualified Code(s): N41.0 - Acute prostatitis Condition: Good Referrals: NONE *PRIMARY CARE P,. [Primary Care Provider] - As per Instructions
[2017-05-16] MEDS ORDERED: NS 500 ML IV ONE (16:21)
[2017-05-16 16:33] LABS: PLATELET COUNT 182 10^3/uL (150-400)
--- NOTE | 2017-05-16 16:38 | CPEKG ---
Heart Rate: 94 RR Interval: 638 P-R Interval: 144 QRSD Interval: 126 QT Interval: 376 QTC Interval: 471 P [place]: 72 QRS [place]: -52 T Wave [place]: 119 EKG Severity - ABNORMAL ECG - EKG Impression: SINUS RHYTHM EKG Impression: PROBABLE LEFT ATRIAL ABNORMALITY EKG Impression: LEFT BUNDLE BRANCH BLOCK EKG Impression: INFERIOR Q WAVES, POSSIBLY DUE TO LBBB Electronically Signed By: Ayde Quinteros 16-May-2017 22:55:02
[2017-05-16] MEDS ORDERED: levOFLOXACIN 500 MG/DEXTROSE 100 ML IV ONE (18:21)
[2017-05-16] MEDS ORDERED: ONDANSETRON 4 MG/2 ML VIAL IVP PRN (18:31)
[2017-05-16] MEDS ORDERED: ONDANSETRON DISINTEGRATING 4 MG TAB PO PRN (18:31)
[2017-05-16] MEDS ORDERED: ACETAMINOPHEN 325 MG TAB PO PRN (18:31)
--- NOTE | 2017-05-16 20:49 | GHP ---
[f rep st] HISTORY AND PHYSICAL DATE OF ADMISSION: 05/16/2017 CHIEF COMPLAINT: Dysuria, abdominal discomfort, and fatigue. HISTORY OF PRESENT ILLNESS: A 71-year-old male with limited past medical history to BPH who presents after being seen in Dr. Cordero's clinic in Urology for ongoing prostatitis. The patient reports havi ng symptoms preceding about a week in clinic with very painful urination and lower abdominal discomfo rt. He was seen by Dr. Cordero and diagnosed with prostatitis, initiated on oral Bactrim therapy, and asked to return for followup. When he returned, his symptoms were persistent, and it was decided to send the patient to [facility] for IV antibiotics. Upon arrival here, the patient is r eporting ongoing dysuria and abdominal discomfort. He denies any nausea or vomiting. He does have c hronic dyspepsia, which persists. He denies chest pain, denies palpitations. Denies shortness of br eath, headaches, subjective fevers, chills, or vomiting. The patient has had normal stools. No lowe r extremity edema or rashes. He was compliant with his outpatient antibiotics and is having relief o f his symptoms already with the initiation of IV antibiotics in the emergency department and fluids. PAST MEDICAL HISTORY: 1. Gastroesophageal reflux disease. 2. BPH. SOCIAL HISTORY: Negative for tobacco. The patient drinks vodka in the evenings. No illicit drugs o r marijuana. FAMILY HISTORY: Negative for heart disease. REVIEW OF SYSTEMS: A 10-point review of systems is negative with the exception of that reported in t he HPI. PHYSICAL EXAMINATION: VITAL SIGNS: Blood pressure 113/93, heart rate 94, respiratory rate 16, and 9 5% on room air and 36.7. GENERAL: This is a very pleasant-appearing, middle-aged male in no acute d istress. HEENT: Notable for dry mucous membranes. Eye exam is negative for any icterus. CARDIAC: The patient is regular rate and rhythm. PULMONARY: Clear to auscultation bilaterally. GASTROINTES TINAL: Positive bowel sounds. ABDOMEN: Soft and nontender. MUSCULOSKELETAL: Negative for any low er extremity edema. SKIN: Negative for any rashes. NEUROLOGIC: He is alert and oriented x3. PSYC HIATRIC: He is pleasant and cooperative on interview and examination. LABORATORY DATA: Chest x-ray, which I personally reviewed and interpreted, shows no acute infiltrate s or edema. Laboratory: White count 9.3, hematocrit 46.7. Creatinine 1.0. ASSESSMENT AND PLAN: This is a 71-year-old male presenting with ongoing symptoms of prostatitis. 1. Acute prostatitis. The patient has persistent symptoms. Suspect outpatient antibiotics need to be broadened. We will treat with intravenous levofloxacin. Urine cultures have been sent as well as blood cultures. We will continue to follow the patient's symptoms after fluid resuscitation. 2. Sinus tachycardia suspect secondary to hypovolemia. The patient received intravenous fluids and has had improvement in his heart rates. We will continue to follow. 3. Benign prostatic hypertrophy. We will continue his tamsulosin. 4. Gastroesophageal reflux. The patient is describing some symptoms. We will initiate pantoprazole . Prophylaxis with Lovenox. 5. Diet: Regular. 6. Disposition: I expect in less than 2 midnights if the patient responds well to fluid resuscitati on and intravenous antibiotics. He can be transitioned to p.o. I discussed the case with the emergency room physician. The patient will be triaged to the medical-s urgical floor for care. /[id number]/MODL
[2017-05-16] MEDS: PANTOPRAZOLE SODIUM 40 MG TAB PO SCH (21:10)
[2017-05-16] MEDS: TAMSULOSIN HCL 0.4 MG CAP PO SCH (21:10)
[2017-05-17 04:54] LABS: PLATELET COUNT 125 10^3/uL (150-400)
[2017-05-17] MEDS ORDERED: Herbals/Supplements -Info Only PO SCH (09:00)
[2017-05-17] MEDS: PANTOPRAZOLE SODIUM 40 MG TAB PO SCH (10:00)
[2017-05-17] MEDS: NS 1,000 ML IV SCH ×2 (10:00→19:43)
[2017-05-17] MEDS: THIAMINE HCL 100 MG TAB PO SCH (10:00)
[2017-05-17] MEDS: ASPIRIN EC 81 MG TAB PO SCH (10:01)
[2017-05-17] MEDS: ENOXAPARIN 40 MG/0.4 ML SYR SC SCH (10:02)
--- NOTE | 2017-05-17 12:49 | HOSPPROG ---
Hospitalist Progress Note Assessment/Plan: 71y male with c/o pain urinating. First encounter, chart reviewed. #Prostatitis -cont levaquin -responding well -symptoms gone -await urine cx -await blood cx -was on bactrim, DC #Tachy -cont ivf, responding -related to hypotension -follow #Hypotension -responding to IVF -cont supportive -asymptomatic #GERD -stable -protonix #ILD -hx of tobacco use #Hx CAD -only on asa 81 -cont -stable #Dispo -change to inpt -await cxs -await vital signs to stabilize Subjective: Feeling well. Pain gone. No other complaints. Objective: Vital Signs Temp Pulse Resp BP Pulse Ox 36.8 C 97 15 87/58 L 95 05/17/17 11:00 05/17/17 11:00 05/17/17 11:00 05/17/17 11:00 05/17/17 11:00 Laboratory Results 05/17/17 04:13 05/17/17 04:13 05/16/17 05/17/17 05/18/17 05:59 05:59 05:59 Intake Total 500 Balance 500 - Physical Exam Constitutional: not in pain, chronically ill appearing, cachectic Eyes: PERRL, anicteric sclera, EOMI Ears, Nose, Mouth, Throat: moist mucous membranes, hearing normal, ears appear normal Cardiovascular: tachycardia, No JVD, No edema Respiratory: no respiratory distress, no rales or rhonchi, bronchial breath sounds Gastrointestinal: normoactive bowel sounds, No tenderness, No ascites Skin: warm, normal color, No mottled Musculoskeletal: normal joint ROM, no joint effusions, generalized weakness Psychiatric: not anxious, not encephalopathic, poor insight, poor judgement, poor memory ICD10 Worksheet Patient Problems: Problems Problem Status Onset Diarrhea Acute Vomiting Acute Alcohol withdrawal Acute Elevated troponin Acute Dizziness Acute Prostatitis Acute
--- NOTE | 2017-05-17 14:01 | PDMN ---
Medical Necessity Medical necessity: C/M review: est. > 2 MN LOS for acute and persistent prostatitis, await blood and urine cultures results, tachycardia, hypotension, requiring ongoing IV fluids, oral Levaquin, comorbid patient was on oral Bactrim prior to this admission, GERD, interstitial lung disease, history to tobacco use, CAD per 05/17/2017 Hospitalist progress note.
--- NOTE | 2017-05-17 17:06 | ASMTCMCOM ---
CM Note CM Note Notes: Reviewed chart and discussed w/hospitalist and RN. No CM needs anticipated at this time but CM available if needed. Pt lives at home w/son. Date Signed: 05/17/2017 05:05 PM Electronically Signed By:Stacey Weeks RN
[2017-05-17] MEDS: TAMSULOSIN HCL 0.4 MG CAP PO SCH (19:43)
[2017-05-18] MEDS: PANTOPRAZOLE SODIUM 40 MG TAB PO SCH (08:24)
[2017-05-18] MEDS: ASPIRIN EC 81 MG TAB PO SCH (08:24)
[2017-05-18] MEDS: THIAMINE HCL 100 MG TAB PO SCH (08:24)
[2017-05-18] MEDS: ENOXAPARIN 40 MG/0.4 ML SYR SC SCH (08:27)
[2017-05-18 09:45] VITALS: BP 103/71
--- NOTE | 2017-05-18 11:35 | GDS ---
[f rep st] DISCHARGE SUMMARY DISCHARGE DIAGNOSES: 1. Prostatitis. 2. Tachycardia. 3. Hypotension. 4. Gastroesophageal reflux disease. 5. Interstitial lung disease. 6. History of coronary artery disease. 7. Orthostatic. STUDIES AND PROCEDURES DONE: Blood cultures with no growth. PHYSICAL EXAM: GENERAL: The patient is alert. VITAL SIGNS: Afebrile at 36.7, pulse is 95, respira tory rate 16, blood pressure is 97/60, saturating 95% on room air. I have seen and evaluated the pat ient on the day of discharge. HOSPITAL COURSE: The patient is a 71-year-old male, who presents to the hospital after being seen by his urologist, Dr. Cordero in the office. He was evaluated and diagnosed with: 1. Prostatitis. The patient had been initiated on Bactrim in the outpatient setting. However, his symptoms were persistent. He presented to the hospital for ongoing evaluation. He was initiated on Levaquin and has responded well to this antibiotic treatment. He will continue this for a total of 1 4 days at the time of disposition. He will follow up with Dr. Cordero as needed. 2. Sinus tachycardia in the setting of hypovolemia and acute infection. This is intermittent and wild s subsided. 3. Hypotension. This is multifactorial in the setting of acute infectious process and hypovolemia. I suspect the patient would benefit from a beta nasrin as he does have a history of a CABG and coul d utilize more contractility of his heart. We will defer this to his primary care physician and his metal furniture repairer in the outpatient setting. 4. Gastroesophageal reflux disease. His medications have been continued. DISPOSITION: Patient will be discharged home with his son. He has returned to his baseline and he i s asymptomatic. He will follow up with his primary care physician as well as it recommended that he follow up with his metal furniture repairer. It is my opinion that he may benefit from beta nasrin therapy in t he outpatient setting secondary to his hypotension and mild tachycardia intermittently. His son is i n agreement with this plan. There are no pending studies. DISCHARGE MEDICATIONS: Please refer to EMR form. I have provided the patient a prescription with Le vaquin 750 mg daily. TIME SPENT: I spent greater than 35 minutes in the care, coordination, and management of this patien t's disposition. /[id number]/MODL
== END 2017-05-18 11:00 | disposition home or self-care (01) | DRG 728 ==
LOC: INTOOBSV 18:20 → OBSVTOIN 18:20 → F3N 19:52
PROVIDERS: ADMIT Hospitalist; ATTEND Hospitalist
DX: N41.0 Acute prostatitis (principal); I95.1 Orthostatic hypotension; J84.9 Interstitial pulmonary disease, unspecified; I25.10 Atherosclerotic heart disease of native coronary artery without angina pectoris; K21.9 Gastro-esophageal reflux disease without esophagitis; R00.0 Tachycardia, unspecified; Z87.891 Personal history of nicotine dependence; Z95.1 Presence of aortocoronary bypass graft; Z95.5 Presence of coronary angioplasty implant and graft
CPT/HCPCS: G0378; J1650; J1956

== ENCOUNTER 2017-07-04 21:38 | Emergency (ER) | payer OTHER ==
--- NOTE | 2017-07-04 22:36 | EDPHY ---
General - History Smoking Status: Former smoker Time Seen by Provider: 07/04/17 22:29 Narrative: EKG interpretation by me on record in [facility]. Impression time of EKG 5:24 a.m., this is sinus rhythm rate of 78 left bundle-branch block present. When I compare this EKG to his EKG at 1:55 a.m. Is very similar morphology. Additionally when I compare this to his EKG dated 04/29/2018 similar morphology. And when I compare this EKG dated 05/16/2017 very similar morphology. (Oscar Almontehen) CHIEF COMPLAINT: nausea, "sores on back," itching HISTORY OF PRESENT ILLNESS: Patient presents with son at bedside. He complains of rash and itching of back, chest and arms. Rash has been present for several days. The nausea started this morning MEDICAL/SURGICAL/SOCIAL HISTORY: Coronary artery disease, BPH, UTI. CABG, orthopedic injuries REVIEW OF SYSTEMS: Ten systems reviewed and are negative unless otherwise noted in the HPI EXAMINATION General Appearance: Alert, no distress. Appears stated age Head: normocephalic, atraumatic ENT: Pupils equal round reactive. EOM symmetric. Airway widely patent Neck: Supple nontender. Painless range in all planes. Cardiovascular: Regular rhythm. No murmur. Pulses symmetric in the radial. Pulses symmetric DP. Respiratory: Lungs are clear in all mendez. No retractions or distress Back: No midline tenderness, crepitus or deformity. Rash as below Neurological: GCS 15. A&O, sensory symmetric, strength is 5/5 in the wrists, knees and ankles. Mild resting tremor of the upper extremities. No seizure activity. Normal [id number]. No pronator drift Skin: Warm and dry. Multiple areas of excoriation about the chest, back and arms. No secondary infection. No abscess. Extremities: Nontender, no pedal edema. Symmetric range of motion DIFFERENTIAL DIAGNOSES: Including but not limited to alcohol withdrawal, delirium tremens, dehydration, renal dysfunction, excoriation MDM: 10:35 p.m. Nausea, pruritus and multiple sores all over the body. The patient is mildly tachycardic and mildly tremulous. There is no encephalopathy. He is mentating appropriately. He does admit to heavy alcohol ingestion and does appear to be an early withdrawals. I do not think he is in DTs. I have ordered laboratory studies, EKG, chest x-ray, IV fluid, thiamine, folate. I discussed the case with Dr. Almonte. He will evaluate the patient as well. 11:25 p.m. Laboratory studies are unremarkable for any significant abnormalities. A chest x-ray unremarkable. Patient CIWA score is 7, and this is pre-ativan. 12:10 a.m. Patient has been evaluated by Dr. Almonte. Plan for repeat troponin and EKG at 3 hour santo. 2:00 a.m. Repeat EKG has been performed and reviewed by Dr. Almonte. His repeat troponin is pending. At this time he will assume care the patient. Please see his note for final disposition. SUPERVISION: Patient was evaluated and examined in conjunction with my secondary supervising physician as documented. We have both examined the patient. (Ketan Aragon) Medical Decision Makin: Patient re-evaluated this time is resting comfortably he has no chest pain or shortness of breath. He has had serial troponins in the emergency room this evening as been here for over 8 hr he has not developed any chest pain or shortness of breath. His serial troponins have remained negative. He additionally had serial EKGs and his EKG does show a left bundle branch block and it is pretty much unchanged from his previous EKGs. The I do not appreciate acute ischemia. Patient is resting comfortably. He came in for skin rash, shakiness and some burning pain in his epigastric region. His main complaint he came in for rash. His blood work is reassuring he has no signs of infection. There is no evidence of acute coronary syndrome. He was now up and walking to the bathroom and felt fine he is eager to be discharged he slept most the night in the emergency room I did discussed return precautions with him he understands return emergency room if develops any worsening chest pain shortness of breath fever or vomiting. He is comfortable this plan. Additionally I recommend that he cut back on his alcohol as he 71 years of age in drinking a large amount of alcohol 3 pt of liquor a day. I explained this could cause him harm and that he should seriously think about cutting back. Additionally I wonder if he was going through some alcohol draw when he got here he greatly improved with IV Ativan. (Shreyas Almonte) - Objective Vital Signs: Initial Vital Signs Temperature (C) 98.2 F 07/04/17 21:39 Heart Rate 101 H 07/04/17 21:39 Respiratory Rate 18 07/04/17 21:39 Blood Pressure 151/104 H 07/04/17 21:39 O2 Sat (%) 94 07/04/17 21:39 O2 Delivery Mode Room Air Allergies/Adverse Reactions: No Known Allergies Allergy (Verified 02/16/17 10:01) Home Medications: Medication Instructions Recorded Tamsulosin HCl [Flomax 0.4 MG (*)] 0.4 mg PO HS #30 cap 02/15/17 Aspirin EC [Aspirin EC 81 mg (*)] 81 mg PO DAILY tab 02/19/17 Thiamine HCl [Vitamin B-1] 200 mg PO DAILY tab 02/19/17 Acetaminophen [Tylenol 325mg (*)] 650 mg PO Q4HRS PRN tab 05/18/17 levOFLOXACIN [levAQUIN (*)] 750 mg PO DAILY10 #12 tab 05/18/17 Laboratory Results: Laboratory Results 07/04/17 22:50 07/04/17 22:50 Medications Given: Discontinued Medications Famotidine (Pepcid) 20 mg IVP EDNOW ONE Stop: 07/04/17 22:46 Last Admin: 07/04/17 22:57 Dose: 20 mg Folic Acid (Folic Acid) 1 mg PO EDNOW ONE Stop: 07/04/17 22:47 Last Admin: 07/04/17 22:57 Dose: 1 mg Sodium Chloride (Ns) 1,000 mls @ 0 mls/hr IV EDNOW ONE; Wide Open PRN Reason: Protocol Stop: 07/04/17 22:46 Last Admin: 07/04/17 22:57 Dose: 1,000 mls Magnesium Sulfate (Magnesium Sulf 2 Gm (Premix)) 50 mls @ 50 mls/hr IV EDNOW ONE Stop: 07/05/17 03:23 Last Admin: 07/05/17 02:42 Dose: 50 mls Lorazepam (Ativan Injection) 1 mg IVP EDNOW ONE Stop: 07/04/17 22:48 Last Admin: 07/04/17 22:59 Dose: 1 mg Thiamine HCl (Vitamin B-1) 100 mg PO EDNOW ONE Stop: 07/04/17 22:47 Last Admin: 07/04/17 22:57 Dose: 100 mg Departure - Departure Disposition: Home, Routine, Self-Care Clinical Impression: Nausea Alcohol dependence Qualifiers: Substance use status: uncomplicated Qualified Code(s): F10.20 - Alcohol dependence, uncomplicated Alcoholic gastritis Qualifiers: Chronicity: acute Gastritis bleeding: without bleeding Qualified Code(s): K29.20 - Alcoholic gastritis without bleeding Condition: Good Instructions: Gastritis (ED), Abuse of Alcohol (ED), Alcohol Withdrawal (ED) Additional Instructions: 1. Recommend close follow up with primary care physician for monitored alcohol cessation 2. ED precautions for any return of symptoms 3. Recommend Pepcid [id number] 20 mg twice daily Referrals: Celestino Cordero MD [Primary Care Provider] - As per Instructions Tod Parra MD [Medical Doctor] - As per Instructions
[2017-07-04] MEDS ORDERED: FAMOTIDINE 20 MG/2 ML SDV IVP ONE (22:45)
[2017-07-04] MEDS ORDERED: NS 1,000 ML IV ONE (22:45)
[2017-07-04] MEDS ORDERED: FOLIC ACID 1 MG TAB PO ONE (22:46)
[2017-07-04] MEDS ORDERED: THIAMINE HCL 100 MG TAB PO ONE (22:46)
[2017-07-04] MEDS ORDERED: LORazepam 2 MG/ML INJ IVP ONE (22:47)
[2017-07-04 23:02] LABS: PLATELET COUNT 156 10^3/uL (150-400)
[2017-07-04 23:18] LABS: INR 0.99 (0.83-1.16); PROTIME(PATIENT) 13.3 SEC (12.0-15.0)
--- NOTE | 2017-07-04 23:21 | CPEKG ---
Heart Rate: 82 RR Interval: 732 P-R Interval: 152 QRSD Interval: 130 QT Interval: 392 QTC Interval: 458 P [place]: 53 QRS [place]: -45 T Wave [place]: 135 EKG Severity - ABNORMAL ECG - EKG Impression: SINUS RHYTHM EKG Impression: PROBABLE LEFT ATRIAL ABNORMALITY EKG Impression: NONSPECIFIC IVCD WITH LAD EKG Impression: PROBABLE INFEROLATERAL INFARCT, AGE INDETERM Electronically Signed By: Shreyas Almonte 05-Jul-2017 07:22:47
--- NOTE | 2017-07-05 01:58 | CPEKG ---
Heart Rate: 89 RR Interval: 674 P-R Interval: 152 QRSD Interval: 120 QT Interval: 392 QTC Interval: 477 P [place]: 51 QRS [place]: -50 T Wave [place]: 92 EKG Severity - ABNORMAL ECG - EKG Impression: SINUS RHYTHM EKG Impression: VENTRICULAR PREMATURE COMPLEX EKG Impression: INCOMPLETE LEFT BUNDLE BRANCH BLOCK EKG Impression: LEFT VENTRICULAR HYPERTROPHY EKG Impression: INFERIOR INFARCT, AGE INDETERMINATE EKG Impression: CONSIDER ANTERIOR INFARCT Electronically Signed By: Shreyas Almonte 05-Jul-2017 07:22:47
[2017-07-05] MEDS ORDERED: MAGNESIUM SULF 2 GM/WATER 50 ML IV ONE (02:24)
--- NOTE | 2017-07-05 05:27 | CPEKG ---
Heart Rate: 78 RR Interval: 769 P-R Interval: 152 QRSD Interval: 124 QT Interval: 412 QTC Interval: 470 P [place]: 86 QRS [place]: -50 T Wave [place]: -66 EKG Severity - ABNORMAL ECG - EKG Impression: SINUS RHYTHM EKG Impression: PROBABLE LEFT ATRIAL ABNORMALITY EKG Impression: LEFT BUNDLE BRANCH BLOCK EKG Impression: INFERIOR Q WAVES, POSSIBLY DUE TO LBBB Electronically Signed By: Shreyas Almonte 05-Jul-2017 07:22:47
[2017-07-05 06:19] VITALS: BP 148/62
== END 2017-07-05 06:17 | disposition home or self-care (01) ==
DX: K29.20 Alcoholic gastritis without bleeding (principal); F10.20 Alcohol dependence, uncomplicated; I25.810 Atherosclerosis of coronary artery bypass graft(s) without angina pectoris; E86.9 Volume depletion, unspecified; Z79.82 Long term (current) use of aspirin; Z87.891 Personal history of nicotine dependence
CPT/HCPCS: 71045; 93005; 96361; 96374; 96375; 99285; J2060; J3475; G0480

== ENCOUNTER 2017-11-08 11:40 | Emergency (ER) | payer OTHER ==
[2017-11-08 11:49] VITALS: BP 116/80
[2017-11-08] MEDS ORDERED: predniSONE 20 MG TAB PO ONE (13:06)
[2017-11-08] MEDS ORDERED: CEPHALEXIN 500 MG CAP PO ONE (13:06)
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
== END 2017-11-08 13:29 | disposition home or self-care (01) ==
DX: L20.9 Atopic dermatitis, unspecified (principal); Z95.1 Presence of aortocoronary bypass graft; F03.90 Unspecified dementia, unspecified severity, without behavioral disturbance, psychotic disturbance, mood disturbance, and anxiety
CPT/HCPCS: 99283; J7512

== ENCOUNTER 2018-02-05 15:52 | Inpatient (IN) | payer OTHER ==
[2018-02-05] MEDS ORDERED: NS 1,000 ML IV ONE ×2 (16:05→20:04)
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
[2018-02-05 16:16] LABS: PLATELET COUNT 220 10^3/uL (150-400)
--- NOTE | 2018-02-05 17:52 | CPEKG ---
Test Reason : OPEN Blood Pressure : / mmHG Vent. Rate : 110 BPM Atrial Rate : 110 BPM P-R Int : 139 ms QRS Dur : 106 ms QT Int : 345 ms P-R-T Axes : 061 -46 138 degrees QTc Int : 467 ms Sinus tachycardia Multiple ventricular premature complexes LVH with secondary repolarization abnormality Confirmed by Brad Hargrove ([id number]) on 02/05/2018 5:52:26 PM Referred By: Confirmed By:Brad Hargrove
[2018-02-05] MEDS ORDERED: LORazepam 2 MG/ML INJ IVP ONE (20:04)
[2018-02-05] MEDS ORDERED: FLUMAZENIL 0.5 MG/5 ML MDV IVP PRN (20:42)
[2018-02-05] MEDS ORDERED: LORazepam 1 MG TAB PO PRN (20:42)
[2018-02-05] MEDS ORDERED: NS W/ 20 KCl/L 1,000 ML IV SCH (20:45)
[2018-02-05] MEDS ORDERED: PROMETHAZINE HCL 25 MG/ML INJ IVP PRN (20:45)
[2018-02-05] MEDS ORDERED: PROTOCOL MAGNESIUM 1 DOSE IV PRN (20:47)
[2018-02-05] MEDS ORDERED: PROTOCOL POTASSIUM 1 DOSE MISC PRN (20:47)
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
[2018-02-05] MEDS: FAMOTIDINE 20 MG/NACL 50 ML IV SCH (21:29)
[2018-02-05] MEDS: LORazepam 2 MG/ML INJ IVP PRN (22:34)
[2018-02-05] MEDS: THIAMINE HCL 500 MG in NS 100 ML IV SCH (23:06)
[2018-02-06 06:02] LABS: PLATELET COUNT 156 10^3/uL (150-400)
[2018-02-06 06:07] LABS: INR 1.12 (0.83-1.16); PROTIME(PATIENT) 14.6 SEC (12.0-15.0)
--- NOTE | 2018-02-06 08:37 | HOSPPROG ---
Hospitalist Progress Note Assessment/Plan: DIAGNOSES: * nausea vomiting dehydration * I am not certain that he actually has so far had acute alcohol withdrawal, which was Lela admission diagnosis * hypoglycemia * hypomagnesemia requiring ongoing replacement * metabolic acidosis, suspect ketones due to "starvation" with vomiting, and also to Etoh * alcohol abuse At this time I think his illness appears mostly nausea vomiting dehydration which could be caused by infection likely viral, or potentially by alcohol induced gastropathy and mild alcohol hepatitis, or combination of these. At the time of admission he was diagnosed with alcohol withdrawal however I think his tachycardia and confusion could easily be explained by dehydration, metabolic acidosis, hypomagnesemia, alcohol intoxication (he did have alcohol in his blood on arrival). At this time he has normal mentation, no anxiety, no tremor, tachycardia has resolved, his blood pressures are low instead of high. His last for CIWA scores are between 0 and 2. Notably the patient states he did have a period during the previous 10 months where he did not drink at all for 2 months, and did not have any withdrawal at that time. This being stated, the patient does wish to stop drinking alcohol after my discussion and I do think there is some risk of developing alcohol withdrawal. I have discussed this with him and he understands that if he does start withdrawing will need to keep him here and manage that which might keep him here for several days even though his nausea vomiting dehydration have all really resolved. He is in need of further IV hydration at this point as he does appear clinically dehydrated right now PLANS: * continue IV hydraton * daily thiamine and multivitamins * Continue regular diet * dvt proph * follow electrolytes and acid base, replace electrolytes as needed * Follow CIWA scores, and treat him for withdrawal if that progresses * Alcohol cessation counseling provided today at bedside SUBJECTIVE: Patient feels notably better today Is eating and drinking well No abdominal Pain Not dizzy like he was yesterday Not anxious, no tremor, no fever symptoms OBJECTIVE Vitals reviewed: tachycardia has resolved but BP is low this am, no fever resps nl Stock Turner, my review: CIWA scores have been at 0-2 Exam: alert oriented skin warm dry color ok resps not labored lungs clear BSs heart regular abd soft nondistended nontender, bowel sounds present limbs warm, no edema iv site ok Lab data: stable CBC with some normalized Hg with hydraton still some met acidosis but anion gap notably better, Cl up though in normal range Mg 1.3 mild hepatitis with AST 80s and minimal increase bili Objective: Vital Signs Temp Pulse Resp BP Pulse Ox 36.8 C 96 18 96/64 L 95 02/06/18 08:00 02/06/18 08:00 02/06/18 08:00 02/06/18 08:00 02/06/18 08:00 Laboratory Results 02/06/18 05:13 02/06/18 05:13 02/05/18 02/06/18 02/07/18 06:59 06:59 06:59 Intake Total 2550 Output Total 500 Balance 2050 PT 14.6 SEC (12.0-15.0) 02/06/18 05:13 INR 1.12 (0.83-1.16) 02/06/18 05:13 - Time Spent With Patient Time Spent with Patient: greater than 35 minutes Time Spent with Patient: Greater than 35 minutes spent on this patients care, greater than 50% of time spent counseling, educating, and coordinating care regarding the above mentioned plan. ICD10 Worksheet Patient Problems: Problems Problem Status Onset Dehydration Acute Syncope Acute Alcohol withdrawal Acute Diarrhea Acute Dizziness Acute Elevated troponin Acute Prostatitis Acute Vomiting Acute
[2018-02-06] MEDS: FOLIC ACID 1 MG TAB PO SCH (08:49)
[2018-02-06] MEDS: MULTIVITAMINS 1 EACH TAB PO SCH (08:49)
[2018-02-06] MEDS: FAMOTIDINE 20 MG/NACL 50 ML IV SCH (08:50)
[2018-02-06] MEDS ORDERED: POTASSIUM CL 10 MEQ TAB PO ONE ×2 (10:27→19:49)
--- NOTE | 2018-02-06 13:07 | ECHO ---
[email or web address] [address] [address] Main: [phone] Fax: Transthoracic Echocardiogram Name: EL GARDUNO MR#: [id number] Study Date: 02/06/2018 Study Time: 08:57 AM Date of : 1945 Age: 72 year(s) Height: 180.3 cm (71 in.) Weight: 61.24 kg (135 lb.) BSA: 1.78 m2 Gender: Male Examination: Echo Indication: Cardiac: syncope, previous echo CABG Image Quality: Good Contrast: Requested by: Js Dahl BP: 96 mmHg/64 mmHg Heart Rate: Rhythm: Indication: Cardiac: syncope, previous echo CABG Procedure Staff Lean Manufacturing Engineer: Dasha Baez RDCS Reading Physician: Boris Soares MD Requesting Provider: Measurements: Chambers Valvular Assessment AV/MV Valvular Assessment TV/PV Normal Normal Normal Name Value Range Name Value Range Name Value Range Ao Aylin (MM): 4.0 cm (2.2 cm-3.7 AV Vmax: 1.49 m/s (1 m/s-1.7 TR Vmax: 2.21 mm/s ( - ) cm) m/s) TR PGmax: 20 mmHg ( - ) IVSd (2D): 1.0 cm (0.6 cm-1.1 AV meanP mmHg ( - ) syst. PAP: 25 mmHg ( - ) cm) AR (PHT): 543 ms ( - ) LVDd (2D): 4.7 cm (4.2 cm-5.9 MV E Vmax: 0.67 m/s ( - ) cm) MV A Vmax: 0.81 m/s ( - ) LVDs (2D): 3.7 cm (2.1 cm-4 MV E/A: 0.83 ( - ) cm) LVPWd (2D): 0.9 cm (0.6 cm-1 cm) LVEF (BP): 54 % (>=55 %) EF Range: 40-45 % Continued Measurements: Chambers Valvular Assessment AV/MV Valvular Assessment TV/PV Name Value Name Value Name Value LADs: 3.6 cm MV E' Septal: 0.06 m/s CVP (est.): 5 mmHg LADs Lon.4 cm MV E/E' Septal: 11.90 LA Area: 20.2 cm2 MV E/E' Lateral: 5.50 LA Volume: 52 ml AR Vmax: 3.69 cm/s LA Volume Index: 29.2 ml/m2 Additional Vessels Patient: EL GARDUNO Study Date: 02/06/2018 Page 1 of 2 08:57 AM Name Value Ao Ascendin.4 cm Findings: Left Ventricle: Normal size left ventricle. Mild concentric LV hypertrophy. Mildly reduced systolic LV function. The ejection fraction is estimated to be 40-45 %. There is paradoxic septal motion suggestive of bundle branch block, paced cardiac rhythm, or prior cardiac surgery. Grade 1 diastolic dysfunction (abnormal relaxation). LV inferior and inferolateral agudelo hypokinetic . Right Ventricle: Normal size right ventricle. Left Atrium: The left atrium is mildly dilated. Right Atrium: The right atrium is normal in size. Mitral Valve: Moderate-severe mitral annular calcification. Mild mitral valve regurgitation is present. Aortic Valve: The aortic valve is tri-leaflet. Mild aortic valve regurgitation is present. Mildly calcific NCC of the aortic valve.. Tricuspid Valve: The tricuspid valve is normal in appearance and function. Mild tricuspid regurgitation is present. The pulmonary artery pressure is normal. Pulmonic Valve: The pulmonic valve is normal in appearance and function. Aorta: The aorta is normal. Mildly dilated ascending aorta measuring 4.4 cm. Pericardium: No pericardial effusion. (No Signature Object) Patient: EL GARDUNO Study Date: 02/06/2018 Page 2 of 2 08:57 AM [id number]
--- NOTE | 2018-02-06 15:43 | PDMN ---
Medical Necessity Medical necessity: [facility] General Admission: 72 yo initially presents w/ syncope, n/v and weakness. Questionable acute etoh w/d, cont w/ dehydration, met acidosis and hypomagnesemia requiring ongoing replacement and management. requiring additional MN for ongoing IV hydration, electrolyte replacement, CIWA protocol and lab monitoring. Change to IP status 02/06/18@1340 per MD order.
[2018-02-06] MEDS: LORazepam 2 MG/ML INJ IVP PRN ×2 (15:59→21:56)
--- NOTE | 2018-02-06 16:07 | ASMTCMCOM ---
CM Note CM Note Notes: Pt admitted to hospital for syncopal episode. He drinks heavily and has been having n/v. Received call from Jyothi at Dr Holland's office, stating that [facility] has an open case with this pt. There may be some concern about son. CM met with pt, he states that he lives with son. I asked if he felt safe there and he said yes, " we bark at eachother sometimes but everybody does" Also asked if he would like any resources regarding drinking, pt declines. I let pt know i would be available should he change his mind. DC Plan: TBD Date Signed: 02/06/2018 04:06 PM Electronically Signed By:Nataliya Sanches RN
[2018-02-06] MEDS: FAMOTIDINE 20 MG TAB PO SCH (20:23)
[2018-02-06] MEDS: THIAMINE HCL 500 MG in NS 100 ML IV SCH (21:56)
[2018-02-07] MEDS: LORazepam 2 MG/ML INJ IVP PRN (03:15)
[2018-02-07] MEDS ORDERED: POTASSIUM CL 10 MEQ TAB PO ONE (09:18)
[2018-02-07] MEDS ORDERED: MAGNESIUM SULF 2 GM/WATER 50 ML IV ONE ×2 (09:19→12:33)
[2018-02-07] MEDS: FAMOTIDINE 20 MG TAB PO SCH (09:51)
[2018-02-07] MEDS: FOLIC ACID 1 MG TAB PO SCH (09:51)
[2018-02-07] MEDS: MULTIVITAMINS 1 EACH TAB PO SCH (09:51)
[2018-02-07 11:52] VITALS: BP 110/87
--- NOTE | 2018-02-07 16:14 | ASMTLACE ---
IMTIAZE Length of stay for Answers: 4-6 days current admission Acuity / Level of Answers: Yes Care: Did the patient have an inpatient admission? Comorbidities - select Answers: Coronary Artery Disease all that apply Dementia # of Emergency department Answers: 1-2 visits in the last 6 months Social determinants Answers: History of substance abuse (ETOH, street drugs, prescription drugs, etc.) Score: 16 Date Signed: 02/07/2018 04:13 PM Electronically Signed By:Nataliya Sanches RN
--- NOTE | 2018-02-07 16:16 | ASMTCMCOM ---
CM Note CM Note Notes: Met with pt and son regarding home PT that was recommended by therapist. Pt and son decline the need. Pt will have a visit from Марина (HAJA) next week. DC Plan: Independent Date Signed: 02/07/2018 04:15 PM Electronically Signed By:Nataliya Sanches RN
[2018-02-08] MEDS ORDERED: THIAMINE HCL 100 MG TAB PO SCH (09:00)
--- NOTE | 2018-03-05 12:51 | GDS ---
DISCHARGE DIAGNOSES: 1. Presyncope versus syncope due to dehydration. 2. Probable viral gastroenteritis. 3. Hypoglycemia and hypomagnesemia. 4. Alcohol abuse. 5. Dementia. HISTORY: This is a 72-year-old male who presented for a possible syncopal event while watching TV. HOSPITAL COURSE: Patient admitted. Did have electrolyte abnormalities consistent with dehydration d ue to his nausea, vomiting and diarrhea that he has had for a few days prior. He was given intraveno us fluids. He was able to eat without any problems. He is being discharged home. /[id number]/MODL
== END 2018-02-07 16:28 | disposition home or self-care (01) | DRG 897 ==
LOC: EDUNIT# → F3E 22:27 → OBSVTOIN 02-06 13:40
PROVIDERS: ADMIT Family Medicine; ATTEND Family Medicine
DX: F10.239 Alcohol dependence with withdrawal, unspecified (principal); I25.10 Atherosclerotic heart disease of native coronary artery without angina pectoris; Z95.1 Presence of aortocoronary bypass graft; R55 Syncope and collapse; E87.2 Acidosis; E86.0 Dehydration
CPT/HCPCS: 84484-PO; 97161-GP; 97165-GO; 97530-GP; G0378; G0480; G8978-GP-CI; G8979-GP-CH; G8987-GO-CI; G8988-GO-CI; G8989-GO-CI; J2060; J3411; J3475